=== PATIENT | female | born 1965 | race American Indian/Alaskan Native ===

== ENCOUNTER 2018-10-13 06:09 | Inpatient (IN) | payer OTHER ==
[2018-10-13] MEDS ORDERED: PROVENTIL IH ONE (06:15)
[2018-10-13] MEDS ORDERED: ATROVENT IH ONE (06:16)
[2018-10-13] MEDS ORDERED: ATIVAN IV ONE (06:19)
[2018-10-13] MEDS ORDERED: CATAPRES PO ONE (06:19)
--- NOTE | 2018-10-13 06:21 | Emergency Department Report ---
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 Patient presented to the ER complaining of shortness of breath and wheezing I started this morning. Patient stated that she was seen by her primary care physician on Sunday and she was given a steroid but symptoms improved a little bit and irritated this morning. Patient denied any fever or chills. No chest pain. Patient stated that her cough is productive with greenish sputum. EMS stated that patient initial oxygen saturation was 88% on room air patient received 125 mg of Solu-Medrol, 2 g magnesium sulfate and nonrebreather patient oxygen saturation went up to 98%. Patient refused BiPAP. Patient stated that she was intubated before for asthma exacerbation. MD Complaint: shortness of breath, cough -: This morning Severity: severe Known History Of: asthma Context: recent URI - Related Data Previous Rx's Medication Instructions Recorded Last Taken Type Cyclobenzaprine HCl [Flexeril 5 MG 5 mg PO TID PRN #21 tab 04/12/16 Unknown Rx TAB] Ibuprofen [Motrin 800 MG tab] 800 mg PO Q8HR PRN #30 tablet 04/12/16 Unknown Rx Allergies Allergy/AdvReac Type Severity Reaction Status Date / Time seafood, shellfish Allergy Rash Uncoded 04/12/16 21:12 ED Review of Systems ROS: Stated complaint: ASTHMA ATTACK Other details as noted in HPI Comment: All other systems reviewed and negative Constitutional: denies: chills, fever Respiratory: cough, shortness of breath, SOB with exertion, SOB at rest, wheezing Cardiovascular: denies: chest pain, palpitations, dyspnea on exertion Gastrointestinal: denies: abdominal pain, nausea, vomiting Musculoskeletal: denies: back pain Neurological: denies: headache, weakness, numbness, paresthesias, confusion ED Past Medical Hx - Past Medical History Hx Hypertension: Yes Hx Diabetes: Yes Hx Asthma: Yes - Surgical History Additional Surgical History: right kidney removed as child - Social History Smoking Status: Never Smoker Substance Use Type: None - Medications Home Medications: Home Medications Medication Instructions Recorded Confirmed Last Taken Type Cyclobenzaprine HCl [Flexeril 5 MG 5 mg PO TID PRN #21 tab 04/12/16 Unknown Rx TAB] Ibuprofen [Motrin 800 MG tab] 800 mg PO Q8HR PRN #30 tablet 04/12/16 Unknown Rx ED Physical Exam - General Limitations: No Limitations General appearance: alert, in distress - Head Head exam: Present: atraumatic, normocephalic, normal inspection - Eye Eye exam: Present: normal appearance, PERRL - ENT ENT exam: Present: normal exam, normal orophraynx, mucous membranes moist - Neck Neck exam: Present: normal inspection, full ROM. Absent: tenderness, meningismus, lymphadenopathy, thyromegaly - Respiratory Respiratory exam: Present: respiratory distress, wheezes, rhonchi, accessory muscle use, decreased breath sounds, prolonged expiratory. Absent: rales, stridor - Cardiovascular Cardiovascular Exam: Present: tachycardia - GI/Abdominal GI/Abdominal exam: Present: soft, normal bowel sounds. Absent: distended, tenderness, guarding, rebound, rigid, organomegaly, mass, bruit, pulsatile mass, hernia - Extremities Exam Extremities exam: Present: normal inspection, full ROM, normal capillary refill. Absent: pedal edema, calf tenderness - Back Exam Back exam: Present: normal inspection, full ROM - Neurological Exam Neurological exam: Present: alert, oriented X3, CN II-XII intact - Skin Skin exam: Present: warm, intact, normal color ED Course Vital Signs 10/13/18 10/13/18 10/13/18 06:17 06:18 06:31 Temperature 98.6 F Pulse Rate 119 H 126 H Pulse Rate [ Anterior Bilateral Throughout] Respiratory 23 24 Rate Respiratory Rate [Anterior Bilateral Throughout] Blood Pressure 227/138 Blood Pressure 227/138 [Left] O2 Sat by Pulse 100 100 Oximetry 10/13/18 10/13/18 10/13/18 06:36 07:02 07:04 Temperature Pulse Rate 129 H Pulse Rate [ 122 H Anterior Bilateral Throughout] Respiratory 23 Rate Respiratory 32 H 25 H Rate [Anterior Bilateral Throughout] Blood Pressure 193/101 Blood Pressure [Left] O2 Sat by Pulse 100 Oximetry 10/13/18 10/13/18 10/13/18 07:36 08:02 08:40 Temperature Pulse Rate 116 H 114 H 110 H Pulse Rate [ Anterior Bilateral Throughout] Respiratory 19 20 20 Rate Respiratory Rate [Anterior Bilateral Throughout] Blood Pressure Blood Pressure 174/109 144/96 [Left] O2 Sat by Pulse 100 100 100 Oximetry 10/13/18 10/13/18 10:09 10:57 Temperature Pulse Rate 77 90 Pulse Rate [ Anterior Bilateral Throughout] Respiratory 20 20 Rate Respiratory Rate [Anterior Bilateral Throughout] Blood Pressure Blood Pressure 151/74 144/80 [Left] O2 Sat by Pulse 100 100 Oximetry - Reevaluation(s) Reevaluation #1: 10/13/18 08:52 Patient evaluated by me multiple times. Patient stated that she is feeling much better. Patient initially refused BiPAP but we able to try to convince that it would help, and she agreed. - Consultations Consultation #1: 10/13/18 08:[address] Faust and, hospitalist she advised to admit the patient to Dr. Winslow. ED Medical Decision Making - Lab Data Result diagrams: 10/13/18 06:38 10/13/18 06:38 - Radiology Data Radiology results: report reviewed Referring Physician: KEO HOPKINS Patient Name: LOR WEBSTER Date of : 1965 Sex: Female Report Date: 2018-10-13 Report Status: Finalized Findings [facility] [address] [place] [address] XRay Report Signed Patient: LOR WEBSTER MR#: [id number] : 1965 Acct:[id number] Age/Sex: 52 / F ADM Date: 10/13/18 Loc: 4A A483-[address]: MARYLU WINSLOW MD Ordering Physician: KEO HOPKINS Date of Service: 10/13/18 Procedure(s): XR chest 1V ap Accession Number(s): [id number] cc: KEO HOPKINS Fluoro Time In Minutes: FINAL REPORT EXAM: XR CHEST 1V AP HISTORY: SOB. TECHNIQUE: Frontal chest x-ray. PRIORS: None currently available. FINDINGS: Cardiac silhouette is within normal limits. There is no effusion. There is no pneumothorax. There is no consolidation. Mildly prominent bilateral pulmonary markings. There are no suspicious osseous lesions. Scoliosis. IMPRESSION: Suspect mild pulmonary vascular congestion. Differential diagnosis includes bronchitis and interstitial pneumonitis. Transcribed By: TYM Dictated By: NOE WALLER MD Electronically Authenticated By: NOE WALLER MD Signed Date/Time: 10/13/18 1021 DD/ 1020 TD/TT: 10/13/18 1020 Critical Care Time: Yes Critical care time in (mins) excluding proc time.: 30 Critical care attestation.: If time is entered above; I have spent that time in minutes in the direct care of this critically ill patient, excluding procedure time. ED Disposition Clinical Impression: Acute respiratory failure, Asthma exacerbation Disposition: OP ADMIT IP TO THIS HOSP Is pt being admited?: Yes Condition: Stable
[2018-10-13] MEDS ORDERED: LEVAQUIN 500MG/100ML 500 MG/100 ML BAG IV ONE (06:22)
[2018-10-13] MEDS ORDERED: ATIVAN ONE (06:23)
[2018-10-13 07:07] LABS: Basophils # (Auto) 0.1 K/mm3 (0.0-0.1); Basophils % (Auto) 0.5 % (0.0-1.8); Eosinophils % (Auto) 0.2 % (0.0-4.3); Hematocrit 38.7 % (30.3-42.9); Hemoglobin 12.8 gm/dl (10.1-14.3); Lymphocytes # (Auto) 2.8 K/mm3 (1.2-5.4); Lymphocytes % (Auto) 19.6 % (13.4-35.0); Mean Corpuscular HGB Conc 33 % (30-34); Mean Corpuscular Volume 80 fl (79-97); Monocytes # (Auto) 0.8 K/mm3 (0.0-0.8); Monocytes % (Auto) 5.3 % (0.0-7.3); Platelet Count 251 K/mm3 (140-440); Red Blood Count 4.83 M/mm3 (3.65-5.03); Red Cell Distribution Width 14.9 % (13.2-15.2)
[2018-10-13 07:14] LABS: BUN/Creatinine Ratio 26; Blood Urea Nitrogen 23 mg/dL (7-17); Calcium 9.1 mg/dL (8.4-10.2); Hemolysis Index 5
--- NOTE | 2018-10-13 10:21 | XRay Report ---
FINAL REPORT EXAM: XR CHEST 1V AP HISTORY: SOB. TECHNIQUE: Frontal chest x-ray. PRIORS: None currently available. FINDINGS: Cardiac silhouette is within normal limits. There is no effusion. There is no pneumothorax. There is no consolidation. Mildly prominent bilateral pulmonary markings. There are no suspicious osseous lesions. Scoliosis. IMPRESSION: Suspect mild pulmonary vascular congestion. Differential diagnosis includes bronchitis and interstiti al pneumonitis.
[2018-10-13] MEDS ORDERED: ZOFRAN IV PRN (12:49)
[2018-10-13] MEDS ORDERED: TYLENOL PO PRN (12:49)
[2018-10-13] MEDS ORDERED: SODIUM CHLORIDE FLUSH SYRINGE 10 ML IV PRN (12:49)
[2018-10-13] MEDS ORDERED: MORPHINE IV PRN (12:49)
[2018-10-13] MEDS ORDERED: SOLU-Medrol IV SCH (14:00)
[2018-10-13] MEDS ORDERED: ZITHROMAX 500 MG in NACL 0.9% 250ML 250 ML IV SCH (14:00)
[2018-10-13] MEDS ORDERED: SOLU-Medrol ONE (14:27)
--- NOTE | 2018-10-13 15:07 | Consultation ---
History of Present Illness Consult date: 10/13/18 Requesting physician: KEO HOPKINS Reason for consult: dyspnea, asthma History of present illness: PULMONARY/CCM CONSULT NOTE (Full dictation # [id number]) Please see dictated notes for full details Medications and Allergies Allergies Allergy/AdvReac Type Severity Reaction Status Date / Time seafood, shellfish Allergy Rash Uncoded 04/12/16 21:12 Home Medications Medication Instructions Recorded Confirmed Last Taken Type ALBUTEROL Inhaler(NF) [VENTOLIN 2 puff IH Q6HR PRN #1 inha 10/14/18 Unknown Rx Inhaler(NF)] Budesonide/Formoterol Fumarate 10.2 gm IH BID #1 hfa.aer.ad 10/14/18 Unknown Rx [Symbicort 160-4.5 Mcg Inhaler] Famotidine [Pepcid] 20 mg PO BID #60 tablet 10/14/18 Unknown Rx Glimepiride [Amaryl] 2 mg PO QAM #30 tablet 10/14/18 Unknown Rx Ipratropium/Albuterol Sulfate 1 ampul IH Q6HRT #100 ampul.neb 10/14/18 Unknown Rx [DUONEB *Not for PRN Use*] Losartan [Cozaar] 50 mg PO QDAY #30 tablet 10/14/18 Unknown Rx Metformin HCl 1,000 mg PO BID #60 tablet 10/14/18 Unknown Rx Montelukast [Singulair] 10 mg PO QPM #30 tablet 10/14/18 Unknown Rx Prednisone [predniSONE (Christiane) ER 20 mg PO QDAY #5 tablet.dr 10/14/18 Unknown Rx TAB] amLODIPine [Norvasc] 10 mg PO QDAY #30 tablet 10/14/18 Unknown Rx Active Meds: Active Medications Acetaminophen (Tylenol) 650 mg PO Q4H PRN PRN Reason: Pain MILD(1-3)/Fever >100.5/JAMES Albuterol/Ipratropium (Duoneb *Not For Prn Use*) 1 ampul IH Q4HRT GYPSY Famotidine (Pepcid) 20 mg PO BID GYPSY Azithromycin 500 mg/ Sodium (Chloride) 250 mls @ 250 mls/hr IV Q24H GYPSY Methylprednisolone Sodium Succinate (Solu-Medrol) 60 mg IV Q6H GYPSY Last Admin: 10/13/18 14:49 Dose: 60 mg Documented by: Morphine Sulfate (Morphine) 2 mg IV Q4H PRN PRN Reason: Pain, Moderate (4-6) Ondansetron HCl (Zofran) 4 mg IV Q8H PRN PRN Reason: Nausea And Vomiting Sodium Chloride (Sodium Chloride Flush Syringe 10 Ml) 10 ml IV BID GYPSY Sodium Chloride (Sodium Chloride Flush Syringe 10 Ml) 10 ml IV PRN PRN PRN Reason: LINE FLUSH Physical Examination Vital signs: Vital Signs Temp Pulse Resp BP Pulse Ox 98.6 F 119 H 23 227/138 100 10/13/18 06:17 10/13/18 06:17 10/13/18 06:17 10/13/18 06:17 10/13/18 06:17 Results - Laboratory Findings CBC and BMP: 10/14/18 04:41 10/14/18 04:41 ABG POC ABG pH 7.354 (7.35-7.45) 10/13/18 12:36 POC ABG pCO2 47.2 (35-45) H 10/13/18 12:36 POC ABG pO2 89 (80-105) 10/13/18 12:36 POC ABG HCO3 26.3 10/13/18 12:36 POC ABG Total CO2 28 10/13/18 12:36 POC ABG O2 Sat 96 10/13/18 12:36 Abnormal lab findings: Abnormal Labs 10/13/18 10/13/18 10/13/18 06:38 06:38 06:40 WBC 14.3 H MCH 27 L Seg Neutrophils % 74.4 H Seg Neutrophils # 10.7 H POC ABG pH 7.273 L POC ABG pCO2 59.0 H POC ABG pO2 128 H BUN 23 H Glucose 192 H 10/13/18 12:36 WBC MCH Seg Neutrophils % Seg Neutrophils # POC ABG pH POC ABG pCO2 47.2 H POC ABG pO2 BUN Glucose
[2018-10-13] MEDS ORDERED: D50W (25GM) Syringe IV PRN (15:19)
--- NOTE | 2018-10-13 15:19 | History and Physical Report ---
History of Present Illness Date of examination: 10/13/18 Date of admission: 10/13/18 08:53 Chief complaint: Cough and shortness of breath` History of present illness: Patient is a 52-year-old -[place] female with history of severe asthma who presented to the ED on acct of cough with sob. Patient stated that for the past few weeks she's been having difficulty breathing with cough. Today, after she woke up, she suddenly started coughing with associated shortness of breath which was not relieved by her breathing treatments at home. She has positive palpitation and runny nose. She denies chest pain, diaphoresis, fever, chills, sore throat, leg swelling, orthopnea or PND. No headaches, nausea, vomiting, lightheadedness, syncope or loss of consciousness. No reported bleeding from any orifice Past History Past Medical History: diabetes, hypertension, hyperlipidemia, other (asthma) Past Surgical History: Other (left nephrectomy) Social history: no significant social history (she denies tobacco, alcohol or illicit drug use) Family history: other (patient is adopted) Medications and Allergies Allergies Allergy/AdvReac Type Severity Reaction Status Date / Time seafood, shellfish Allergy Rash Uncoded 04/12/16 21:12 Home Medications Medication Instructions Recorded Confirmed Last Taken Type Cyclobenzaprine HCl [Flexeril 5 MG 5 mg PO TID PRN #21 tab 04/12/16 Unknown Rx TAB] Ibuprofen [Motrin 800 MG tab] 800 mg PO Q8HR PRN #30 tablet 04/12/16 Unknown Rx Active Meds: Active Medications Acetaminophen (Tylenol) 650 mg PO Q4H PRN PRN Reason: Pain MILD(1-3)/Fever >100.5/JAMES Albuterol/Ipratropium (Duoneb *Not For Prn Use*) 1 ampul IH Q4HRT GYPSY Amlodipine Besylate (Norvasc) 10 mg PO QDAY GYPSY Famotidine (Pepcid) 20 mg PO BID GYPSY Azithromycin 500 mg/ Sodium (Chloride) 250 mls @ 250 mls/hr IV Q24H GYPSY Methylprednisolone Sodium Succinate (Solu-Medrol) 60 mg IV Q8HR GYPSY Morphine Sulfate (Morphine) 2 mg IV Q4H PRN PRN Reason: Pain, Moderate (4-6) Ondansetron HCl (Zofran) 4 mg IV Q8H PRN PRN Reason: Nausea And Vomiting Sodium Chloride (Sodium Chloride Flush Syringe 10 Ml) 10 ml IV BID GYPSY Sodium Chloride (Sodium Chloride Flush Syringe 10 Ml) 10 ml IV PRN PRN PRN Reason: LINE FLUSH Review of Systems All systems: negative (except as reviewed in the HPI, all other systems were reviewed and negative) Exam - Constitutional Vitals: Temp Pulse Resp BP Pulse Ox 98.6 F 90 20 144/80 98 10/13/18 06:17 10/13/18 10:57 10/13/18 10:57 10/13/18 10:57 10/13/18 12:35 General appearance: Present: no acute distress, obese - EENT Eyes: Present: PERRL, EOM intact ENT: hearing intact, clear oral mucosa - Neck Neck: Present: supple, normal ROM - Respiratory Respiratory effort: normal Respiratory: bilateral: diminished - Cardiovascular Rhythm: regular Heart Sounds: Present: S1 & S2. Absent: rub, click - Extremities Extremities: pulses symmetrical, No edema Peripheral Pulses: within normal limits - Abdominal General gastrointestinal: Present: soft, non-tender, non-distended, normal bowel sounds Female genitourinary: Present: deferred - Integumentary Integumentary: Present: clear, warm, dry - Musculoskeletal Musculoskeletal: gait normal, strength equal bilaterally - Psychiatric Psychiatric: appropriate mood/affect, intact judgment & insight - Neurologic Neurologic: CNII-XII intact, moves all extremities Results - Labs CBC & Chem 7: 10/13/18 06:38 10/13/18 06:38 Labs: Laboratory Last Values WBC 14.3 K/mm3 (4.5-11.0) H 10/13/18 06:38 RBC 4.83 M/mm3 (3.65-5.03) 10/13/18 06:38 Hgb 12.8 gm/dl (10.1-14.3) 10/13/18 06:38 Hct 38.7 % (30.3-42.9) 10/13/18 06:38 MCV 80 fl (79-97) 10/13/18 06:38 MCH 27 pg (28-32) L 10/13/18 06:38 MCHC 33 % (30-34) 10/13/18 06:38 RDW 14.9 % (13.2-15.2) 10/13/18 06:38 Plt Count 251 K/mm3 (140-440) 10/13/18 06:38 Lymph % (Auto) 19.6 % (13.4-35.0) 10/13/18 06:38 Hendry % (Auto) 5.3 % (0.0-7.3) 10/13/18 06:38 Eos % (Auto) 0.2 % (0.0-4.3) 10/13/18 06:38 Baso % (Auto) 0.5 % (0.0-1.8) 10/13/18 06:38 Lymph # 2.8 K/mm3 (1.2-5.4) 10/13/18 06:38 Hendry # 0.8 K/mm3 (0.0-0.8) 10/13/18 06:38 Eos # 0.0 K/mm3 (0.0-0.4) 10/13/18 06:38 Baso # 0.1 K/mm3 (0.0-0.1) 10/13/18 06:38 Seg Neutrophils % 74.4 % (40.0-70.0) H 10/13/18 06:38 Seg Neutrophils # 10.7 K/mm3 (1.8-7.7) H 10/13/18 06:38 POC ABG pH 7.354 (7.35-7.45) 10/13/18 12:36 POC ABG pCO2 47.2 (35-45) H 10/13/18 12:36 POC ABG pO2 89 (80-105) 10/13/18 12:36 POC ABG HCO3 26.3 10/13/18 12:36 POC ABG Total CO2 28 10/13/18 12:36 POC ABG O2 Sat 96 10/13/18 12:36 POC ABG Base Excess 1 10/13/18 12:36 FiO2 31 % 10/13/18 12:36 Sodium 140 mmol/L (137-145) 10/13/18 06:38 Potassium 3.6 mmol/L (3.6-5.0) 10/13/18 06:38 Chloride 100.8 mmol/L (98-107) 10/13/18 06:38 Carbon Dioxide 26 mmol/L (22-30) 10/13/18 06:38 Anion Gap 17 mmol/L 10/13/18 06:38 BUN 23 mg/dL (7-17) H 10/13/18 06:38 Creatinine 0.9 mg/dL (0.7-1.2) 10/13/18 06:38 Estimated GFR > 60 ml/min 10/13/18 06:38 BUN/Creatinine Ratio 26 % 10/13/18 06:38 Glucose 192 mg/dL (65-100) H 10/13/18 06:38 Calcium 9.1 mg/dL (8.4-10.2) 10/13/18 06:38 Troponin T < 0.010 ng/mL (0.00-0.029) 10/13/18 06:38 NT-Pro-B Natriuret Pep 107.9 pg/mL (0-900) 10/13/18 06:38 Assessment and Plan Assessment and plan: ACute severe asthma exacerbation -On IV steroids, duonebs and antibiotic Acute respiratory failure with hypoxia and hypercapnia -Improved, off BIPAP -Continue oxygen supplementation via nc as needed and duonebs SIRS, probably 2/2 acute bronchitis versus interstitial pneumonitis -On IV antibiotic -Blood cultures pending Hypertensive emergency with blood pressure of 227/138 on presentation -Blood pressure improved -Amlodipine started, monitor DM2 with hyperglycemia -on Lantus and SSI HLD -Resume statin when reconciled Obesity with BMI of 34.6 -Lifestyle modification recommended Prophylaxis -DVT prophylaxis with Lovenox -GI prophylaxis with famotidine Disp: Patient admitted on inpatient status with plan for discharge in 2-3 days if clinically stable TIME SPENT: 38 MINUTES
[2018-10-13] MEDS: DUONEB *Not for PRN Use IH SCH ×2 (16:13→19:42)
[2018-10-13] MEDS ORDERED: NORVASC ONE (16:25)
[2018-10-13] MEDS ORDERED: PEPCID ONE (16:25)
[2018-10-13] MEDS: PEPCID PO SCH ×2 (16:26→22:29)
[2018-10-13] MEDS: NORVASC PO SCH (16:26)
[2018-10-13] MEDS: HumaLOG SUB-Q SCH ×2 (18:00→22:28)
[2018-10-13] MEDS ORDERED: LANTUS SUB-Q SCH (22:00)
[2018-10-13] MEDS: SOLU-Medrol IV SCH (22:28)
[2018-10-13] MEDS: SODIUM CHLORIDE FLUSH SYRINGE 10 ML IV SCH (22:29)
[2018-10-14] MEDS: DUONEB *Not for PRN Use IH SCH ×2 (01:33→07:55)
[2018-10-14 05:40] LABS: Hematocrit 35.8 % (30.3-42.9); Hemoglobin 12.2 gm/dl (10.1-14.3); Mean Corpuscular HGB Conc 34 % (30-34); Mean Corpuscular Volume 80 fl (79-97); Platelet Count 206 K/mm3 (140-440); Red Blood Count 4.47 M/mm3 (3.65-5.03); Red Cell Distribution Width 14.8 % (13.2-15.2)
[2018-10-14 05:50] LABS: Alanine Aminotransferase 11 units/L (7-56); Albumin 3.7 g/dL (3.9-5); BUN/Creatinine Ratio 25; Blood Urea Nitrogen 28 mg/dL (7-17); Calcium 9.2 mg/dL (8.4-10.2); Hemolysis Index 5
[2018-10-14] MEDS: SOLU-Medrol IV SCH (06:02)
[2018-10-14 06:06] LABS: Bilirubin,Direct < 0.2 mg/dL (0-0.2)
[2018-10-14] MEDS ORDERED: NORVASC PO ONE (06:15)
[2018-10-14 06:23] LABS: Anisocytosis 1+; Band Neutrophils # (Manual) 0.1 K/mm3; Basophils % (Manual) 0 % (0.0-1.8); Eosinophils % (Manual) 0 % (0.0-4.3); Platelet Estimate Consistent w Auto; Total Cells Counted 100
[2018-10-14] MEDS ORDERED: APRESOLINE IV PRN (07:39)
[2018-10-14] MEDS: HumaLOG SUB-Q SCH ×2 (08:15→13:02)
[2018-10-14] MEDS ORDERED: LOVENOX SUB-Q SCH (10:00)
[2018-10-14] MEDS ORDERED: COZAAR PO SCH (10:00)
[2018-10-14] MEDS: PEPCID PO SCH (10:53)
--- NOTE | 2018-10-14 11:36 | Discharge Summary ---
Providers - Providers Date of Admission: 10/13/18 08:53 Date of discharge: 10/14/18 Attending physician: VANITA CORDOBA 10/13/18 12:23 Consult to Physician [CONS] Stat Comment: Consulting Provider: SUELLEN BALBUENA Physician Instructions: Reason For Exam: acute respiratory failure, asthma exacerbation Primary care physician: [employer] Hospitalization Reason for admission: asthma exacerbation Condition: Stable Hospital course: 52-year-old female with history of hypertension, diabetes, asthma was admitted for acute asthma exacerbation This morning patient is resting in the bed not in any distress. She denies any cough shortness of breath or wheezing or chest pain She is medically stable for discharge Chest x-ray showed no acute infiltrate Patient apparently is noncompliant with medications for her diabetes hypertension or asthma I had a good discussion with the patient regarding the importance of compliance with medications Final diagnosis Acute asthma exacerbation Improved Had a long discussion with the patient regarding medication compliance Patient apparently has a nebulizer machine at home Discharge the patient on albuterol inhaler and solution and Symbicort and montelukast Type 2 diabetes poorly controlled Again discussed the plan with the patient that regarding the long-term side effects of poorly controlled diabetes Restart the patient on metformin and glimepiride Hypertension Start on losartan and follow-up with PCP Disposition: DC-01 TO HOME OR SELFCARE Time spent for discharge: 38 min Core Measure Documentation - Palliative Care Palliative Care/ Comfort Measures: Not Applicable - Core Measures Any of the following diagnoses?: none Exam - Constitutional Vitals: Temp Pulse Resp BP Pulse Ox 97.7 F 101 H 18 144/76 98 10/14/18 05:17 10/14/18 10:53 10/14/18 08:17 10/14/18 10:53 10/14/18 08:17 General appearance: Present: no acute distress, well-nourished - EENT Eyes: Present: PERRL, EOM intact ENT: hearing intact, clear oral mucosa - Neck Neck: Present: supple, normal ROM. Absent: masses or JVD - Respiratory Respiratory effort: normal Respiratory: bilateral: CTA - Cardiovascular Rhythm: regular Heart Sounds: Present: S1 & S2 - Extremities Extremities: No edema - Abdominal General gastrointestinal: Present: soft, non-tender. Absent: hepatomegaly, splenomegaly Female genitourinary: Present: deferred - Rectal Rectal Exam: deferred - Integumentary Integumentary: Present: clear - Musculoskeletal Musculoskeletal: strength equal bilaterally - Psychiatric Psychiatric: appropriate mood/affect - Neurologic Neurologic: no focal deficits Plan Activity: advance as tolerated Weight Bearing Status: Full Weight Bearing Diet: regular, low fat, low cholesterol, low salt, diabetic Follow up with: PRIMARY CARE,MD [Primary Care Provider] - 3-5 Days Prescriptions: ALBUTEROL Inhaler(NF) [VENTOLIN Inhaler(NF)] 2 puff IH Q6HR PRN #1 inha PRN Reason: Dyspepsia amLODIPine [Norvasc] 10 mg PO QDAY #30 tablet Budesonide/Formoterol Fumarate [Symbicort 160-4.5 Mcg Inhaler] 10.2 gm IH BID #1 hfa.aer.ad Famotidine [Pepcid] 20 mg PO BID #60 tablet Glimepiride [Amaryl] 2 mg PO QAM #30 tablet Ipratropium/Albuterol Sulfate [DUONEB *Not for PRN Use*] 1 ampul IH Q6HRT #100 ampul.neb Losartan [Cozaar] 50 mg PO QDAY #30 tablet Metformin HCl 1,000 mg PO BID #60 tablet Montelukast [Singulair] 10 mg PO QPM #30 tablet Prednisone [predniSONE (Christiane) ER TAB] 20 mg PO QDAY #5 tablet.
[2018-10-14] MEDS: SODIUM CHLORIDE FLUSH SYRINGE 10 ML IV SCH (11:43)
[2018-10-14] MEDS: NORVASC PO SCH (11:45)
[2018-10-14 12:41] VITALS: BP 145/76
--- NOTE | 2018-10-28 02:57 | Consultation ---
PULMONARY CRITICAL CARE CONSULT NOTE CONSULTING PHYSICIAN: . REASON FOR CONSULTATION: Acute respiratory failure, acute asthma exacerbation. 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 She had been seen by her primary care physician a few days earlier, was started on some steroids, but her symptoms did not improve. She denied fevers or chills. She denied any significant sick contacts. She had been compliant with her medication. She had a cough productive of greenish phlegm. She denied any gross or streaky hemoptysis. On initial evaluation in the Emergency Room, she was hypoxemic, O2 sat was 88% on room air. She does have a prior intubation on acute asthma exacerbation. The patient was placed on amongst other things bilevel positive airway pressure ventilation therapy. We are asked to assist with management. When I stopped by to see her, she was feeling a little bit better. She denied any chest pain. She denied fevers or chills. She still complained of dyspnea on exertion. She denied any chest pain or palpitations. Denied any pleuritic type symptoms. She denied any new onset leg pain or swelling either unilaterally or bilaterally or other suggestion of venous thromboembolic phenomenon. The patient does state that her asthma symptoms seem to wake her up most days of the week and she does not seem to have a director of compensation in the community. This really is as much of the history of presentation as I have. I should mention she also does not seem to be on any controller type medications. PAST MEDICAL HISTORY: Again, hypertension, diabetes, history of asthma. She is obese. She has had a prior nephrectomy. PAST SURGICAL HISTORY: Right nephrectomy as a kid. MEDICATIONS: She was on at the time I stopped by to see her were reviewed, pertinent medications included the following: Tylenol 650 mg p.o. q. 4 hours p.r.n. mild pain or fevers, DuoNeb nebulizer treatments to be nebulized q.4 hours, Pepcid 20 mg p.o. b.i.d., Zithromax 500 mg p.o. daily, Solu-Medrol 60 mg IV q. 6 hours, morphine sulfate 2 mg IV q. 4 hours p.r.n. moderate pain, Zofran 4 mg IV q. 8 hours p.r.n. nausea and vomiting. ALLERGIES: SEAFOOD AND SHELLFISH. Nature of this allergy is unknown. DIET: Obese lady, denies acute weight loss or gain in the preceding few weeks to months. FAMILY AND SOCIAL HISTORY: Lives in the community. She denies any history of tobacco, alcohol, or illicit drug use or abuse. Denies a family history of asthma. FAMILY HISTORY: Otherwise noncontributory. REVIEW OF SYSTEMS: No loss of consciousness. No new onset seizures. No new onset focal weakness. No gross hematochezia or melena. No gross hematuria or dysuria. No hematemesis. No hemoptysis. She had cough productive of greenish phlegm. She denies polydipsia, polyuria. Denies heat or cold intolerance. Complete 13-system review of systems obtained. Pertinent positives and/or negatives as in body of history above, otherwise are noncontributory. PHYSICAL EXAMINATION: At presentation in the Emergency Room revealed: VITAL SIGNS: Shows that she was afebrile, temperature 98.6 degrees Fahrenheit, pulse of 119, respiratory rate 23, blood pressure as high as 227/138, and O2 sats were 100%, inspired oxygen concentration at that time was not recorded. When I stopped by to see her, O2 sats were about 97% on 1 liter nasal cannula. GENERAL: Again, obese -[place] female, middle aged, normocephalic, atraumatic, talking to me in mostly full sentences, but definitely in mild respiratory distress. HEAD, EYES, EARS, NOSE, AND THROAT: She is anicteric. No conjunctival erythema. Oropharynx is moist, it is a Mallampati #3 oropharynx. No gross jugular venous distention, no thyromegaly. Grossly, no palpable lymph nodes in the supraclavicular or submandibular lymph node chains. No meningismus. No thyromegaly. LUNGS: Auscultation of both lung acosta significant for prolonged expiratory phase, faint expiratory wheezing, occasional inspiratory rhonchi in the bases. HEART: Heart sounds 1 and 2 are heard. They were regular in rate and rhythm at time of my evaluation without rubs or murmurs. ABDOMEN: Soft, full, bowel sounds are positive. Protuberant, but nondistended, nontender. EXTREMITIES: Without overt digital clubbing or cyanosis. No pedal edema. No calf swelling or pain or tenderness. Dorsalis pedis pulses are palpable bilaterally. NEUROLOGIC: Pupils are equal, round, about 3-4 mm, reactive to light. Extraocular muscle movements appeared intact. She moves all 4 extremities spontaneously. No fasciculations. No spasticity. SKIN: The skin was of normal turgor without cellulitis or rash. LABORATORY DATA: From my review are as follows: Admission white cell count 14,300 with a hemoglobin of 12.8, hematocrit of 38.7, and a platelet count of 251. No band forms reported. Arterial blood gas at presentation showed a pH of 7.27, pCO2 of 59, pO2 of 128 that was on a 100% nonrebreather. Serum sodium was 140, potassium 3.6, chloride 101, bicarbonate 26, BUN 23, creatinine 0.9, glucose 192. Troponin within normal limits. BNP within normal limits. Blood cultures have been sent, no growth to date. She did have a chest x-ray. I have reviewed the chest x-ray. I have also reviewed the radiologist's interpretation. I do agree with it mostly. She does have evidence of hyperinflation; taking the hyperinflation into consideration, there is borderline cardiomegaly. There appears to be some mild scoliosis. Increased interstitial markings without focal consolidation. I cannot rule out mild interstitial edema, no gross pneumothorax, no gross bony fracture. ASSESSMENT: 1. Acute hypoxemic respiratory failure. 2. Acute asthma exacerbation. 3. Poorly controlled asthma. 4. Obesity. 5. Possible bronchitis. 6. History of diabetes. 7. Hypertension, poorly controlled. 8. History of right nephrectomy. PLAN: I do believe that there may have been an element of mild interstitial edema. This could well have been related to hypertensive urgency. Her systolic blood pressures were almost 230 mmHg at presentation. Right now, she is doing much better. From her asthma standpoint, I think we should continue systemic steroids with a slow taper. We should continue current bronchodilators as ordered. Oxygen will be weaned to keep sats greater than or equal to about 90%. Aspiration precautions will be maintained. I have explained to her that she will need to be on controller medications and to have a director of compensation in the community and she is in agreement with that. She has received also some magnesium supplementation and other interventions in the Emergency Room appeared to have been successful. I did encourage her that she should give wearing BiPAP a thought if she decompensates. She apparently refused that in the Emergency Room on finding out. Otherwise, she will be placed on GI and DVT prophylaxis. Culture should be followed. Antibiotics should be deescalated based on results of clinical and microbiologic data. Flu and pneumonia vaccination will be addressed per protocol. Thank you very much for the consult . We will follow along and make further recommendations as picture progresses/becomes clearer. JOB# [id number] LEONEL/COLLINS
== END 2018-10-14 13:55 | disposition home or self-care (01) | DRG 189 ==
LOC: ED 06:09 → 4A 08:53 → IMCU 12:18 → 3A 14:31
PROVIDERS: ADMIT Internal Medicine; ATTEND Internal Medicine
PROC: 5A09357 Assistance with Respiratory Ventilation, Less than 24 Consecutive Hours, Continuous Positive Airway Pressure (ICD-10-PCS; principal; 2018-10-13)
PROC: 4A033R1 Measurement of Arterial Saturation, Peripheral, Percutaneous Approach (ICD-10-PCS; 2018-10-13)
DX: J96.01 Acute respiratory failure with hypoxia (principal); I16.1 Hypertensive emergency; R65.10 Systemic inflammatory response syndrome (SIRS) of non-infectious origin without acute organ dysfunction; J96.02 Acute respiratory failure with hypercapnia; J45.909 Unspecified asthma, uncomplicated; E66.9 Obesity, unspecified; E78.5 Hyperlipidemia, unspecified; I10 Essential (primary) hypertension; E11.65 Type 2 diabetes mellitus with hyperglycemia; Z90.5 Acquired absence of kidney; Z91.013 Allergy to seafood; Z68.34 Body mass index [BMI] 34.0-34.9, adult; Z71.3 Dietary counseling and surveillance; Z79.84 Long term (current) use of oral hypoglycemic drugs
CPT/HCPCS: 36415; 36600; 71045; 80048; 80076; 82803; 82962; 83735; 83880; 84484; 85007; 85025; 87040; 93005; 93010; 94640; 94760; G0378; J0456; J1650; J1815; J1956; J2060; J2930; J7050

== ENCOUNTER 2019-01-01 11:50 | Emergency (ER) | payer OTHER ==
[2019-01-01] MEDS ORDERED: PROVENTIL IH ONE (12:12)
[2019-01-01] MEDS ORDERED: ATROVENT IH ONE (12:13)
[2019-01-01] MEDS ORDERED: SOLU-Medrol IV ONE (12:17)
[2019-01-01] MEDS ORDERED: MAGNESIUM SULFATE 2GM/50ML 2 GM/50 ML BAG IV ONE (12:17)
[2019-01-01 12:22] VITALS: BP 225/131
--- NOTE | 2019-01-01 12:29 | Emergency Department Report ---
ED General Adult HPI - General Chief complaint: Adult Asthma Stated complaint: ASTHMA Time Seen by Provider: 01/01/19 12:17 Source: patient, RN notes reviewed, old records reviewed Mode of arrival: Ambulatory Limitations: No Limitations - History of Present Illness Initial comments: Primary care DrSis: Morganza chinmay This is a 53-year-old female, not known to this provider previously, with a history of asthma, diabetes, hypertension, obesity. She presents to the emergency room with complaint of painless asthma exacerbation. She reports cough, wheezing, shortness of breath, malaise and fatigue. She denies DVT, pulmonary embolus risk factors. She reports 3 lifetime hospitalizations for asthma, and one lifetime intubation. In the emergency room, patient given magnesium, fluids, steroids, multiple rounds of albuterol, which dramatically improved her symptoms. Currently, blood pressure in the 180s, patient saturating well, on room air, walks without difficulty, and not experiencing desaturation. Tachycardia reviewed and appreciated, likely secondary to albuterol. Contacted the [facility] physician coordinator, Dr. Forman, who has arranged for close outpatient follow-up for repeat blood pressure checkup, and repeat respiratory examination. The patient endorses that she is reliable to follow-up as an outpatient. -: Gradual, days(s) (1) Severity scale (0 -10): 2 Consistency: constant Improves with: medication, rest Worsens with: movement - Related Data Previous Rx's Medication Instructions Recorded Last Taken Type ALBUTEROL Inhaler(NF) [VENTOLIN 2 puff IH Q6HR PRN #1 inha 10/14/18 Unknown Rx Inhaler(NF)] Famotidine [Pepcid] 20 mg PO BID #60 tablet 10/14/18 Unknown Rx Glimepiride [Amaryl] 2 mg PO QAM #30 tablet 10/14/18 Unknown Rx Ipratropium/Albuterol Sulfate 1 ampul IH Q6HRT #100 ampul.neb 10/14/18 Unknown Rx [DUONEB *Not for PRN Use*] Metformin HCl 1,000 mg PO BID #60 tablet 10/14/18 Unknown Rx Montelukast [Singulair] 10 mg PO QPM #30 tablet 10/14/18 Unknown Rx Prednisone [predniSONE (Christiane) ER 20 mg PO QDAY #5 tablet. 10/14/18 Unknown Rx TAB] ALBUTEROL NEB's [Proventil 0.083% 2.5 mg IH QID PRN #10 neb 01/01/19 Unknown Rx NEBS] Albuterol Sulfate [Albuterol 0.63% 0.63 mg IH Q4HR PRN #2 ml 01/01/19 Unknown Rx NEBS] Albuterol Sulfate [Proair 90 mcg IH Q4HR PRN #2 aer.pow.ba 01/01/19 Unknown Rx Respiclick] Budesonide/Formoterol Fumarate 10.2 gm IH BID #1 hfa.aer.ad 01/01/19 Unknown Rx [Symbicort 160-4.5 Mcg Inhaler] Ipratropium [Atrovent NEB] 0.5 mg IH Q4HR #2 ml 01/01/19 Unknown Rx Losartan [Cozaar] 50 mg PO QDAY #30 tablet 01/01/19 Unknown Rx amLODIPine [Norvasc] 10 mg PO QDAY #30 tablet 01/01/19 Unknown Rx predniSONE [Deltasone] 40 mg PO QDAY #8 tab 01/01/19 Unknown Rx Allergies Allergy/AdvReac Type Severity Reaction Status Date / Time seafood, shellfish Allergy Rash Uncoded 04/12/16 21:12 ED Review of Systems ROS: Stated complaint: ASTHMA Other details as noted in HPI Constitutional: weakness. denies: fever, malaise ENT: congestion Respiratory: shortness of breath, SOB with exertion, SOB at rest, wheezing Cardiovascular: denies: chest pain Gastrointestinal: denies: abdominal pain, nausea, vomiting Genitourinary: denies: dysuria Musculoskeletal: denies: back pain Neurological: denies: weakness Psychiatric: anxiety ED Past Medical Hx - Past Medical History Previous Medical History?: Yes Hx Hypertension: Yes Hx Diabetes: Yes Hx Asthma: Yes - Surgical History Past Surgical History?: Yes Additional Surgical History: right kidney removed as child - Social History Smoking Status: Never Smoker - Medications Home Medications: Home Medications Medication Instructions Recorded Confirmed Last Taken Type ALBUTEROL Inhaler(NF) [VENTOLIN 2 puff IH Q6HR PRN #1 inha 10/14/18 Unknown Rx Inhaler(NF)] Famotidine [Pepcid] 20 mg PO BID #60 tablet 10/14/18 Unknown Rx Glimepiride [Amaryl] 2 mg PO QAM #30 tablet 10/14/18 Unknown Rx Ipratropium/Albuterol Sulfate 1 ampul IH Q6HRT #100 ampul.neb 10/14/18 Unknown Rx [DUONEB *Not for PRN Use*] Metformin HCl 1,000 mg PO BID #60 tablet 10/14/18 Unknown Rx Montelukast [Singulair] 10 mg PO QPM #30 tablet 10/14/18 Unknown Rx Prednisone [predniSONE (Christiane) ER 20 mg PO QDAY #5 tablet. 10/14/18 Unknown Rx TAB] ALBUTEROL NEB's [Proventil 0.083% 2.5 mg IH QID PRN #10 neb 01/01/19 Unknown Rx NEBS] Albuterol Sulfate [Albuterol 0.63% 0.63 mg IH Q4HR PRN #2 ml 01/01/19 Unknown Rx NEBS] Albuterol Sulfate [Proair 90 mcg IH Q4HR PRN #2 aer.pow.ba 01/01/19 Unknown Rx Respiclick] Budesonide/Formoterol Fumarate 10.2 gm IH BID #1 hfa.aer.ad 01/01/19 Unknown Rx [Symbicort 160-4.5 Mcg Inhaler] Ipratropium [Atrovent NEB] 0.5 mg IH Q4HR #2 ml 01/01/19 Unknown Rx Losartan [Cozaar] 50 mg PO QDAY #30 tablet 01/01/19 Unknown Rx amLODIPine [Norvasc] 10 mg PO QDAY #30 tablet 01/01/19 Unknown Rx predniSONE [Deltasone] 40 mg PO QDAY #8 tab 01/01/19 Unknown Rx ED Physical Exam - General Limitations: No Limitations General appearance: alert, anxious - Head Head exam: Present: atraumatic, normocephalic - Eye Eye exam: Present: normal appearance, EOMI. Absent: nystagmus - ENT ENT exam: Present: normal exam, normal orophraynx, mucous membranes moist, normal external ear exam - Neck Neck exam: Present: normal inspection, full ROM. Absent: tenderness, meningismus - Respiratory Respiratory exam: Present: normal lung sounds bilaterally, respiratory distress, wheezes, rhonchi - Cardiovascular Cardiovascular Exam: Present: normal rhythm, tachycardia, normal heart sounds. Absent: systolic murmur, diastolic murmur, rubs, gallop - GI/Abdominal GI/Abdominal exam: Present: soft. Absent: distended, tenderness, guarding, rebound, rigid, pulsatile mass - Extremities Exam Extremities exam: Present: normal inspection, full ROM, other (2+ pulses noted in the bilateral upper, lower extremities. Compartments soft. No long bony tenderness. The pelvis is stable.). Absent: pedal edema, calf tenderness - Back Exam Back exam: Present: normal inspection, full ROM. Absent: tenderness, CVA tenderness (R), CVA tenderness (L), paraspinal tenderness, vertebral tenderness - Neurological Exam Neurological exam: Present: alert, oriented X3, normal gait, other (Extraocular movements intact. Tongue midline. No facial droop. Facial sensation intact to light touch in the V1, V2, V3 distribution bilaterally. 5 and 5 strength in 4 extremities.. Sensation is intact to light touch in 4 extremities.). Absent: motor sensory deficit - Psychiatric Psychiatric exam: Present: normal affect, normal mood - Skin Skin exam: Present: warm, dry, intact, normal color. Absent: rash ED Course Vital Signs 01/01/19 01/01/19 01/01/19 12:10 12:15 12:18 Temperature 98.2 F Pulse Rate 123 H 117 H 122 H Pulse Rate [ Anterior Bilateral Throughout] Respiratory 25 H 20 20 Rate Respiratory Rate [Anterior Bilateral Throughout] Blood Pressure 225/131 225/131 Blood Pressure 225/131 [Right] O2 Sat by Pulse 95 95 98 Oximetry 01/01/19 01/01/19 01/01/19 12:21 12:31 12:45 Temperature Pulse Rate 116 H 112 H Pulse Rate [ 119 H Anterior Bilateral Throughout] Respiratory 21 22 Rate Respiratory 26 H Rate [Anterior Bilateral Throughout] Blood Pressure 225/131 225/131 Blood Pressure [Right] O2 Sat by Pulse 99 100 Oximetry 01/01/19 01/01/19 01/01/19 13:01 13:15 13:31 Temperature Pulse Rate 107 H 109 H 113 H Pulse Rate [ Anterior Bilateral Throughout] Respiratory 19 21 19 Rate Respiratory Rate [Anterior Bilateral Throughout] Blood Pressure 225/131 225/131 225/131 Blood Pressure [Right] O2 Sat by Pulse 96 96 96 Oximetry 01/01/19 01/01/19 01/01/19 13:50 14:01 14:02 Temperature Pulse Rate 120 H Pulse Rate [ 119 H Anterior Bilateral Throughout] Respiratory 17 Rate Respiratory 22 Rate [Anterior Bilateral Throughout] Blood Pressure 225/131 225/131 Blood Pressure [Right] O2 Sat by Pulse 99 96 Oximetry 01/01/19 01/01/19 14:15 14:31 Temperature Pulse Rate 108 H 111 H Pulse Rate [ Anterior Bilateral Throughout] Respiratory 21 18 Rate Respiratory Rate [Anterior Bilateral Throughout] Blood Pressure 225/131 225/131 Blood Pressure [Right] O2 Sat by Pulse 96 97 Oximetry ED Medical Decision Making - Lab Data Result diagrams: 01/01/19 12:38 01/01/19 12:38 Vital Signs 01/01/19 01/01/19 01/01/19 12:10 12:15 12:18 Temperature 98.2 F Pulse Rate 123 H 117 H 122 H Pulse Rate [ Anterior Bilateral Throughout] Respiratory 25 H 20 20 Rate Respiratory Rate [Anterior Bilateral Throughout] Blood Pressure 225/131 225/131 Blood Pressure 225/131 [Right] O2 Sat by Pulse 95 95 98 Oximetry 01/01/19 01/01/19 01/01/19 12:21 12:31 12:45 Temperature Pulse Rate 116 H 112 H Pulse Rate [ 119 H Anterior Bilateral Throughout] Respiratory 21 22 Rate Respiratory 26 H Rate [Anterior Bilateral Throughout] Blood Pressure 225/131 225/131 Blood Pressure [Right] O2 Sat by Pulse 99 100 Oximetry 01/01/19 01/01/19 01/01/19 13:01 13:15 13:31 Temperature Pulse Rate 107 H 109 H 113 H Pulse Rate [ Anterior Bilateral Throughout] Respiratory 19 21 19 Rate Respiratory Rate [Anterior Bilateral Throughout] Blood Pressure 225/131 225/131 225/131 Blood Pressure [Right] O2 Sat by Pulse 96 96 96 Oximetry 01/01/19 01/01/19 01/01/19 13:50 14:01 14:02 Temperature Pulse Rate 120 H Pulse Rate [ 119 H Anterior Bilateral Throughout] Respiratory 17 Rate Respiratory 22 Rate [Anterior Bilateral Throughout] Blood Pressure 225/131 225/131 Blood Pressure [Right] O2 Sat by Pulse 99 96 Oximetry 01/01/19 01/01/19 14:15 14:31 Temperature Pulse Rate 108 H 111 H Pulse Rate [ Anterior Bilateral Throughout] Respiratory 21 18 Rate Respiratory Rate [Anterior Bilateral Throughout] Blood Pressure 225/131 225/131 Blood Pressure [Right] O2 Sat by Pulse 96 97 Oximetry Lab Results 01/01/19 01/01/19 01/01/19 Range/Units 12:38 12:38 12:38 WBC 9.9 (4.5-11.0) K/mm3 RBC 4.77 (3.65-5.03) M/mm3 Hgb 13.2 (10.1-14.3) gm/dl Hct 39.2 (30.3-42.9) % MCV 82 (79-97) fl MCH 28 (28-32) pg MCHC 34 (30-34) % RDW 14.4 (13.2-15.2) % Plt Count 194 (140-440) K/mm3 PT 13.0 (12.2-14.9) Sec. INR 0.93 (0.87-1.13) Sodium 138 (137-145) mmol/L Potassium 3.6 (3.6-5.0) mmol/L Chloride 100.7 (98-107) mmol/L Carbon Dioxide 24 (22-30) mmol/L Anion Gap 17 mmol/L BUN 11 (7-17) mg/dL Creatinine 0.9 (0.7-1.2) mg/dL Estimated GFR > 60 ml/min BUN/Creatinine Ratio 12 % Glucose 169 H (65-100) mg/dL Calcium 9.0 (8.4-10.2) mg/dL Magnesium 2.80 H (1.7-2.3) mg/dL Total Creatine Kinase 291 H (30-135) units/L - Radiology Data Radiology results: report reviewed, image reviewed X-ray of the chest is reviewed and appreciated. No acute disease. - Medical Decision Making Differential diagnosis, including but not limited to: Asthma exacerbation, chronic hypertension Assessment and plan: 53-year-old female with asthma exacerbation, improved after albuterol, steroids, and magnesium sulfate. Elevated blood pressure is reviewed and appreciated, this is chronic. Currently, blood pressure in the high 180s. Heart rate now 105-10 8 bpm. Please reference the [employer] clinical policy on hypertension which is not acutely symptomatic. The patient has been given outpatient follow-up with Morganza. She reports that she is reliable to follow-up. Critical care attestation.: If time is entered above; I have spent that time in minutes in the direct care of this critically ill patient, excluding procedure time. ED Disposition Clinical Impression: Asthma exacerbation, Hypertension Disposition: DC-01 TO HOME OR SELFCARE Is pt being admited?: No Does the pt Need Aspirin: No Condition: Stable Instructions: Hypertension (ED), Asthma (ED) Additional Instructions: Please follow-up with your primary care doctor at Dr. Hale at [facility] on January 07 15:20 . Take medications as directed. Please make certain her main compliant blood pressure medications. Patient was found to have high blood pressure in the emergency room. Long-term complications of hypertension and elevated blood pressure includes stroke, heart attack, disability, paralysis, loss of quality of life. Please return to the emergency room right away with new pain, worsening pain, migration of pain, productive vomiting, change in mental status, confusion, inability to tolerate liquid feeds.
[2019-01-01 12:51] LABS: Hematocrit 39.2 % (30.3-42.9); Hemoglobin 13.2 gm/dl (10.1-14.3); Mean Corpuscular HGB Conc 34 % (30-34); Mean Corpuscular Volume 82 fl (79-97); Platelet Count 194 K/mm3 (140-440); Red Blood Count 4.77 M/mm3 (3.65-5.03); Red Cell Distribution Width 14.4 % (13.2-15.2)
--- NOTE | 2019-01-01 12:52 | XRay Report ---
AP CHEST :01/01/19 12:30 CLINICAL: Shortness of breath. COMPARISON:10/13/18 FINDINGS: Normal heart and pulmonary vasculature. The lungs are normally expanded and clear. However, the costophrenic angles are not included on the image. Mild aortic tortuosity. Degenerative change in the spine. Normal soft tissues.No tubes or lines. IMPRESSION: No acute cardiopulmonary process.
[2019-01-01 13:10] LABS: INR 0.93 (0.87-1.13)
[2019-01-01 13:12] LABS: BUN/Creatinine Ratio 12; Blood Urea Nitrogen 11 mg/dL (7-17); Hemolysis Index 5
[2019-01-01] MEDS ORDERED: NACL 0.9% 500 ML 500 ML IV ONE (13:56)
== END 2019-01-01 15:43 | disposition home or self-care (01) ==
LOC: ED 11:50
DX: J45.901 Unspecified asthma with (acute) exacerbation (principal); I10 Essential (primary) hypertension; E11.9 Type 2 diabetes mellitus without complications; Z91.013 Allergy to seafood
CPT/HCPCS: 36415; 71045; 80048; 82550; 83735; 85027; 85610; 94644; 96365; 96375; 99285; J2930; J3475

== ENCOUNTER 2019-06-15 13:27 | Inpatient (IN) | payer MEDICAID, OTHER ==
[2019-06-15] MEDS ORDERED: LORazepam 2 MG/ML VIAL IV ONE (13:50)
[2019-06-15] MEDS ORDERED: LORazepam 2 MG/ML VIAL ONE (13:53)
[2019-06-15] MEDS ORDERED: ALBUTEROL 2.5 MG/3 ML NEBU IH ONE ×4 (13:56→18:14)
[2019-06-15] MEDS ORDERED: IPRATROPIUM 0.02% NEBU 2.5 ML IH ONE ×4 (13:56→18:14)
[2019-06-15] MEDS ORDERED: LIP THERAPY VASELINE TP PRN (14:12)
[2019-06-15] MEDS ORDERED: MINERAL OIL/PETROLATUM, WHITE OPHTH OINT 3.5 GM OU PRN (14:12)
--- NOTE | 2019-06-15 14:12 | Procedure Note ---
Date of procedure: 06/15/19 Pre-op diagnosis: respiratory failure Post-op diagnosis: same Procedure: intubation Estimated blood loss: none (assessment have ET tube was placed under direct visualization of the vocal cords. An initial attempt was not successful so a second attempt was done with condensation in the tube and change and colorimetric. Etomidate and succinylcholine was used for RSI. this was an emergent procedure. Chest x-ray done and will be followed by the on coming physician)
[2019-06-15] MEDS ORDERED: FUROSEMIDE 40 MG/4 ML INJ IV ONE (14:28)
--- NOTE | 2019-06-15 14:34 | Emergency Department Report ---
ED Shortness of Breath HPI - General Chief Complaint: Dyspnea/Respdistress Stated Complaint: RESPIRATORY DISTRESS Time Seen by Provider: 06/15/19 13:49 Source: EMS Mode of arrival: Stretcher Limitations: No Limitations - History of Present Illness Initial Comments: Pt was at [facility] this morning and began experiencing difficulty of breathing. Pt was hypertensive according to EMS at 217/114. Albuterol, solumedrol, and Mag given in route. MD Complaint: shortness of breath, "asthma attack" - Related Data Previous Rx's Medication Instructions Recorded Last Taken Type ALBUTEROL Inhaler(NF) [VENTOLIN 2 puff IH Q6HR PRN #1 inha 10/14/18 Unknown Rx Inhaler(NF)] Famotidine [Pepcid] 20 mg PO BID #60 tablet 10/14/18 Unknown Rx Glimepiride [Amaryl] 2 mg PO QAM #30 tablet 10/14/18 Unknown Rx Ipratropium/Albuterol Sulfate 1 ampul IH Q6HRT #100 ampul.neb 10/14/18 Unknown R x [DUONEB *Not for PRN Use*] Metformin HCl [metFORMIN] 1,000 mg PO BID #60 tablet 10/14/18 Unknown Rx Montelukast [Singulair] 10 mg PO QPM #30 tablet 10/14/18 Unknown Rx Prednisone [predniSONE (Christiane) ER 20 mg PO QDAY #5 tablet.dr 10/14/18 Unknown Rx TAB] ALBUTEROL NEB's [Proventil 0.083% 2.5 mg IH QID PRN #10 neb 01/01/19 Unknown Rx NEBS] Albuterol Sulfate [Albuterol 0.63% 0.63 mg IH Q4HR PRN #2 ml 01/01/19 Unknown Rx NEBS] Albuterol Sulfate [Proair 90 mcg IH Q4HR PRN #2 aer.pow.ba 01/01/19 Unknown Rx Respiclick] Budesonide/Formoterol Fumarate 10.2 gm IH BID #1 hfa.aer.ad 01/01/19 Unknown Rx [Symbicort 160-4.5 Mcg Inhaler] Ipratropium [Atrovent NEB] 0.5 mg IH Q4HR #2 ml 01/01/19 Unknown Rx Losartan [Cozaar] 50 mg PO QDAY #30 tablet 01/01/19 Unknown Rx amLODIPine 10 mg PO QDAY #30 tablet 01/01/19 Unknown Rx predniSONE [Deltasone] 40 mg PO QDAY #8 tab 01/01/19 Unknown Rx Allergies Allergy/AdvReac Type Severity Reaction Status Date / Time seafood, shellfish Allergy Rash Uncoded 04/12/16 21:12 ED Review of Systems ROS: Stated complaint: RESPIRATORY DISTRESS Other details as noted in HPI Comment: All other systems reviewed and negative Respiratory: cough, orthopnea, shortness of breath, wheezing Cardiovascular: dyspnea on exertion ED Past Medical Hx - Past Medical History Hx Hypertension: Yes Hx Diabetes: Yes Hx Asthma: Yes - Surgical History Additional Surgical History: right kidney removed as child - Social History Smoking Status: Never Smoker - Medications Home Medications: Home Medications Medication Instructions Recorded Confirmed Last Taken Type ALBUTEROL Inhaler(NF) [VENTOLIN 2 puff IH Q6HR PRN #1 inha 10/14/18 Unknown Rx Inhaler(NF)] Famotidine [Pepcid] 20 mg PO BID #60 tablet 10/14/18 Unknown Rx Glimepiride [Amaryl] 2 mg PO QAM #30 tablet 10/14/18 Unknown Rx Ipratropium/Albuterol Sulfate 1 ampul IH Q6HRT #100 ampul.neb 10/14/18 Unknown Rx [DUONEB *Not for PRN Use*] Metformin HCl [metFORMIN] 1,000 mg PO BID #60 tablet 10/14/18 Unknown Rx Montelukast [Singulair] 10 mg PO QPM #30 tablet 10/14/18 Unknown Rx Prednisone [predniSONE (Christiane) ER 20 mg PO QDAY #5 tablet. 10/14/18 Unknown Rx TAB] ALBUTEROL NEB's [Proventil 0.083% 2.5 mg IH QID PRN #10 neb 01/01/19 Unknown Rx NEBS] Albuterol Sulfate [Albuterol 0.63% 0.63 mg IH Q4HR PRN #2 ml 01/01/19 Unknown Rx NEBS] Albuterol Sulfate [Proair 90 mcg IH Q4HR PRN #2 aer.pow.ba 01/01/19 Unknown Rx Respiclick] Budesonide/Formoterol Fumarate 10.2 gm IH BID #1 hfa.aer.ad 01/01/19 Unknown Rx [Symbicort 160-4.5 Mcg Inhaler] Ipratropium [Atrovent NEB] 0.5 mg IH Q4HR #2 ml 01/01/19 Unknown Rx Losartan [Cozaar] 50 mg PO QDAY #30 tablet 01/01/19 Unknown Rx amLODIPine 10 mg PO QDAY #30 tablet 01/01/19 Unknown Rx predniSONE [Deltasone] 40 mg PO QDAY #8 tab 01/01/19 Unknown Rx ED Physical Exam - General Limitations: No Limitations General appearance: in distress, obese - Head Head exam: Present: atraumatic - Eye Eye exam: Present: normal appearance - ENT ENT exam: Present: normal exam - Neck Neck exam: Present: normal inspection - Respiratory Respiratory exam: Present: wheezes, accessory muscle use, decreased breath sounds - Cardiovascular Cardiovascular Exam: Present: tachycardia - GI/Abdominal GI/Abdominal exam: Present: soft - Back Exam Back exam: Present: normal inspection - Neurological Exam Neurological exam: Present: alert, altered, CN II-XII intact ED Course Vital Signs 06/15/19 06/15/19 14:30 15:02 Pulse Rate 126 H Respiratory 40 H Rate [Anterior Bilateral Throughout] Blood Pressure 170/113 O2 Sat by Pulse 100 Oximetry ED Medical Decision Making - Lab Data Result diagrams: 06/15/19 14:24 06/15/19 14:24 - EKG Data -: EKG Interpreted by Me EKG shows normal: sinus rhythm Rate: tachycardia - EKG Data Interpretation: nonspecific ST-T wave mala - Radiology Data Radiology results: report reviewed interpreted by me: E.T tube in position E.T tube in position - Medical Decision Making 52-year-old -[place] female with the past medical history of asthma, became dyspneic at [facility], not speaking in full sentences, very labored breathing, therefore was brought to ER via EMS. She was given albuterol in route by EMS, she was given short course of BiPAP in ER, remained very dyspneic, became very confused, urinated on self, anxious, taking bipap off, sats decreased to the 50s, the patient was then intubated. after intubation, patient sats improved to mid 90s, family was advised of patient's condition. - Differential Diagnosis p.e, m.i, asthma exacerbation Critical Care Time: Yes (45mins) Critical care time in (mins) excluding proc time.: 45 Critical care attestation.: If time is entered above; I have spent that time in minutes in the direct care of this critically ill patient, excluding procedure time. ED Disposition Clinical Impression: Acute respiratory failure Qualifiers: Respiratory failure complication: hypoxia Qualified Code(s): J96.01 - Acute respiratory failure with hypoxia Asthma exacerbation Qualifiers: Asthma severity: severe Asthma persistence: persistent Qualified Code(s): J45.51 - Severe persistent asthma with (acute) exacerbation Disposition: 09 OP ADMIT IP TO THIS HOSP Is pt being admited?: Yes Does the pt Need Aspirin: No Condition: Critical
[2019-06-15 14:41] LABS: Hemoglobin 12.8 gm/dl (10.1-14.3); Mean Corpuscular HGB Conc 33 % (30-34); Mean Corpuscular Volume 82 fl (79-97); Platelet Count 247 K/mm3 (140-440); Red Blood Count 4.74 M/mm3 (3.65-5.03); Red Cell Distribution Width 14.7 % (13.2-15.2)
[2019-06-15] MEDS: PROPOFOL 1,000 MG/100 ML BOTTLE IV SCH ×3 (14:42→21:20)
--- NOTE | 2019-06-15 14:44 | XRay Report ---
CHEST 1 VIEW INDICATION: ett tube placement. COMPARISON: Chest x-ray from 01/01/2019 FINDINGS: Support devices: Endotracheal tube with tip along the lower clavicle margin. Heart: Within normal limits. Lungs/Pleura: No acute air space or interstitial disease. Additional findings: None. IMPRESSION: 1. Satisfactory ET tube placement as above. Clear lungs. Signer Name: Paul Drew MD Signed: 06/15/2019 2:40 PM Workstation Name: [id number]
[2019-06-15] MEDS ORDERED: MIDAZOLAM 2 MG/2 ML INJ IV PRN (14:48)
[2019-06-15] MEDS ORDERED: SODIUM CHLORIDE 0.9% 1000 ML 1,000 ML IV ONE (14:48)
[2019-06-15 14:55] LABS: BUN/Creatinine Ratio 19; Blood Urea Nitrogen 19 mg/dL (7-17); Calcium 8.8 mg/dL (8.4-10.2); Hemolysis Index 23
[2019-06-15] MEDS ORDERED: MIDAZOLAM 100 MG in SODIUM CHLORIDE 0.9% 80 ML IV SCH (15:00)
[2019-06-15 15:28] LABS: Band Neutrophils # (Manual) 0.3 K/mm3; Total Cells Counted 100
[2019-06-15 15:30] LABS: Platelet Estimate Consistent w Auto; RBC Morphology Normal
[2019-06-15 16:49] LABS: Chol/HDL Ratio 2.26 %
[2019-06-15] MEDS ORDERED: PROPOFOL 1,000 MG/100 ML BOTTLE IV ONE ×2 (17:38→21:09)
--- NOTE | 2019-06-15 17:52 | History and Physical Report ---
History of Present Illness Date of examination: 06/15/19 Date of admission: 06/15/19 14:14 Chief complaint: Severe shortness of breath and wheezing since a.m. History of present illness: 53-year-old -[place] female with history of asthma, type 2 diabetes and hypertension intubated in the past once comes in for severe shortness of breath and wheezing since morning. Sudden onset. Patient was intubated in the past. No fever or chills. Patient uses nebulizer machine twice a day at home. No exacerbating or relieving factors. No recent travel. Patient was desaturating and was in low 80s because of which patient was intubated in the emergency room. Past Medical History Hypertension Diabetes Asthma Surgical History Additional Surgical History: right kidney removed as child Social History Smoking Status: Never Smoker Family History Htn - Medications Home Medications: Home Medications Medication Instructions Recorded Confirmed Last Taken Type ALBUTEROL Inhaler(NF) [VENTOLIN 2 puff IH Q6HR PRN #1 inha 10/14/18 Unknown Rx Inhaler(NF)] Famotidine [Pepcid] 20 mg PO BID #60 tablet 10/14/18 Unknown Rx Glimepiride [Amaryl] 2 mg PO QAM #30 tablet 10/14/18 Unknown Rx Ipratropium/Albuterol Sulfate 1 ampul IH Q6HRT #100 ampul.neb 10/14/18 Unknown Rx [DUONEB *Not for PRN Use*] Metformin HCl [metFORMIN] 1,000 mg PO BID #60 tablet 10/14/18 Unknown Rx Montelukast [Singulair] 10 mg PO QPM #30 tablet 10/14/18 Unknown Rx Prednisone [predniSONE (Christiane) ER 20 mg PO QDAY #5 tablet.dr 10/14/18 Unknown Rx TAB] ALBUTEROL NEB's [Proventil 0.083% 2.5 mg IH QID PRN #10 neb 01/01/19 Unknown Rx NEBS] Albuterol Sulfate [Albuterol 0.63% 0.63 mg IH Q4HR PRN #2 ml 01/01/19 Unknown Rx NEBS] Albuterol Sulfate [Proair 90 mcg IH Q4HR PRN #2 aer.pow.ba 01/01/19 Unknown Rx Respiclick] Budesonide/Formoterol Fumarate 10.2 gm IH BID #1 hfa.aer.ad 01/01/19 Unknown Rx [Symbicort 160-4.5 Mcg Inhaler] Ipratropium [Atrovent NEB] 0.5 mg IH Q4HR #2 ml 01/01/19 Unknown Rx Losartan [Cozaar] 50 mg PO QDAY #30 tablet 01/01/19 Unknown Rx amLODIPine 10 mg PO QDAY #30 tablet 01/01/19 Unknown Rx predniSONE [Deltasone] 40 mg PO QDAY #8 tab 01/01/19 Unknown Rx Review of Systems ROS: Stated complaint: RESPIRATORY DISTRESS Patient intubated and sedated. No fever or chills. Limited review of systems could be done Severe cough and wheezing and low oxygen saturations 14 point review of systems attempted and could not be done Medications and Allergies Allergies Allergy/AdvReac Type Severity Reaction Status Date / Time seafood, shellfish Allergy Rash Uncoded 04/12/16 21:12 Home Medications Medication Instructions Recorded Confirmed Last Taken Type ALBUTEROL Inhaler(NF) [VENTOLIN 2 puff IH Q6HR PRN #1 inha 10/14/18 Unknown Rx Inhaler(NF)] Famotidine [Pepcid] 20 mg PO BID #60 tablet 10/14/18 Unknown Rx Glimepiride [Amaryl] 2 mg PO QAM #30 tablet 10/14/18 Unknown Rx Ipratropium/Albuterol Sulfate 1 ampul IH Q6HRT #100 ampul.neb 10/14/18 Unknown Rx [DUONEB *Not for PRN Use*] Metformin HCl [metFORMIN] 1,000 mg PO BID #60 tablet 10/14/18 Unknown Rx Montelukast [Singulair] 10 mg PO QPM #30 tablet 10/14/18 Unknown Rx Prednisone [predniSONE (Christiane) ER 20 mg PO QDAY #5 tablet.dr 10/14/18 Unknown Rx TAB] ALBUTEROL NEB's [Proventil 0.083% 2.5 mg IH QID PRN #10 neb 01/01/19 Unknown Rx NEBS] Albuterol Sulfate [Albuterol 0.63% 0.63 mg IH Q4HR PRN #2 ml 01/01/19 Unknown Rx NEBS] Albuterol Sulfate [Proair 90 mcg IH Q4HR PRN #2 aer.pow.ba 01/01/19 Unknown Rx Respiclick] Budesonide/Formoterol Fumarate 10.2 gm IH BID #1 hfa.aer.ad 01/01/19 Unknown Rx [Symbicort 160-4.5 Mcg Inhaler] Ipratropium [Atrovent NEB] 0.5 mg IH Q4HR #2 ml 01/01/19 Unknown Rx Losartan [Cozaar] 50 mg PO QDAY #30 tablet 01/01/19 Unknown Rx amLODIPine 10 mg PO QDAY #30 tablet 01/01/19 Unknown Rx predniSONE [Deltasone] 40 mg PO QDAY #8 tab 01/01/19 Unknown Rx Active Meds: Active Medications Hydrophilic Ointment (Vaseline Lip Therapy) 1 applic TP Q2HR PRN PRN Reason: Dry Lips Propofol (Diprivan 10 Mg/Ml) 1,000 mg in 100 mls @ 3.543 mls/hr IV TITR GYPSY; Protocol Last Titration: 06/15/19 15:30 Dose: 40 mcg/kg/min, 28.344 mls/hr Documented by: Midazolam HCl (Versed) 2 mg IV Q10MIN PRN PRN Reason: Sedation Multi-Ingred Cream/Lotion/Oil/Oint (Artificial Tears Ophth Oint) 1 applic OU Q4HR PRN PRN Reason: Dry Eye(s) Sodium Chloride (Sodium Chloride Flush Syringe 10 Ml) 10 ml IV BID GYPSY Sodium Chloride (Sodium Chloride Flush Syringe 10 Ml) 10 ml IV PRN PRN PRN Reason: LINE FLUSH Exam - Constitutional Vitals: Temp Pulse Resp BP Pulse Ox 101 H 14 155/100 98 06/15/19 17:18 06/15/19 17:18 06/15/19 17:18 06/15/19 17:18 General appearance: Present: severe distress, well-nourished - EENT Eyes: Present: PERRL ENT: hearing intact, clear oral mucosa - Neck Neck: Present: supple, normal ROM - Respiratory Respiratory effort: normal Respiratory: bilateral: CTA, diminished, rhonchi, wheezing - Cardiovascular Heart rate: 93 Rhythm: regular (is) Heart Sounds: Present: S1 & S2. Absent: rub, click - Extremities Extremities: no ischemia, pulses intact, pulses symmetrical, No edema Peripheral Pulses: within normal limits - Abdominal General gastrointestinal: Present: soft, non-tender, non-distended, normal bowel sounds Female genitourinary: Present: normal - Rectal Rectal Exam: deferred - Integumentary Integumentary: Present: clear, warm, dry - Musculoskeletal Musculoskeletal: gait normal, strength equal bilaterally - Psychiatric Psychiatric: appropriate mood/affect, intact judgment & insight - Neurologic Neurologic: CNII-XII intact, moves all extremities - Allied Health Allied health notes reviewed: nursing, case management (resume) Results - Labs CBC & Chem 7: 06/15/19 14:24 06/15/19 14:24 Labs: Laboratory Last Values WBC 25.0 K/mm3 (4.5-11.0) H 06/15/19 14:24 RBC 4.74 M/mm3 (3.65-5.03) 06/15/19 14:24 Hgb 12.8 gm/dl (10.1-14.3) 06/15/19 14:24 Hct 39.0 % (30.3-42.9) 06/15/19 14:24 MCV 82 fl (79-97) 06/15/19 14:24 MCH 27 pg (28-32) L 06/15/19 14:24 MCHC 33 % (30-34) 06/15/19 14:24 RDW 14.7 % (13.2-15.2) 06/15/19 14:24 Plt Count 247 K/mm3 (140-440) 06/15/19 14:24 Lymph # Gas Engine Performance Engineer 06/15/19 14:24 Add Manual Diff Complete 06/15/19 14:24 Total Counted 100 06/15/19 14:24 Seg Neuts % (Manual) 73.0 % (40.0-70.0) H 06/15/19 14:24 Band Neutrophils % 1.0 % 06/15/19 14:24 Lymphocytes % (Manual) 16.0 % (13.4-35.0) 06/15/19 14:24 Reactive Lymphs % (Man) 0 % 06/15/19 14:24 Monocytes % (Manual) 1.0 % (0.0-7.3) 06/15/19 14:24 Eosinophils % (Manual) 8.0 % (0.0-4.3) H 06/15/19 14:24 Basophils % (Manual) 1.0 % (0.0-1.8) 06/15/19 14:24 Metamyelocytes % 0 % 06/15/19 14:24 Myelocytes % 0 % 06/15/19 14:24 Promyelocytes % 0 % 06/15/19 14:24 Blast Cells % 0 % 06/15/19 14:24 Nucleated RBC % Not Reportable 06/15/19 14:24 Seg Neutrophils # Man 18.3 K/mm3 (1.8-7.7) H 06/15/19 14:24 Band Neutrophils # 0.3 K/mm3 06/15/19 14:24 Lymphocytes # (Manual) 4.0 K/mm3 (1.2-5.4) 06/15/19 14:24 Abs React Lymphs (Man) 0.0 K/mm3 06/15/19 14:24 Monocytes # (Manual) 0.3 K/mm3 (0.0-0.8) 06/15/19 14:24 Eosinophils # (Manual) 2.0 K/mm3 (0.0-0.4) H 06/15/19 14:24 Basophils # (Manual) 0.3 K/mm3 (0.0-0.1) H 06/15/19 14:24 Metamyelocytes # 0.0 K/mm3 06/15/19 14:24 Myelocytes # 0.0 K/mm3 06/15/19 14:24 Promyelocytes # 0.0 K/mm3 06/15/19 14:24 Blast Cells # 0.0 K/mm3 06/15/19 14:24 WBC Morphology Not Reportable 06/15/19 14:24 Hypersegmented Neuts Not Reportable 06/15/19 14:24 Hyposegmented Neuts Not Reportable 06/15/19 14:24 Hypogranular Neuts Not Reportable 06/15/19 14:24 Smudge Cells Not Reportable 06/15/19 14:24 Toxic Granulation Not Reportable 06/15/19 14:24 Toxic Vacuolation Not Reportable 06/15/19 14:24 Dohle Bodies Not Reportable 06/15/19 14:24 Pelger-Huet Anomaly Not Reportable 06/15/19 14:24 Alberto Rods Not Reportable 06/15/19 14:24 Platelet Estimate Consistent w auto 06/15/19 14:24 Clumped Platelets Not Reportable 06/15/19 14:24 Plt Clumps, EDTA Not Reportable 06/15/19 14:24 Large Platelets Not Reportable 06/15/19 14:24 Giant Platelets Not Reportable 06/15/19 14:24 Platelet Satelliting Not Reportable 06/15/19 14:24 Plt Morphology Comment Not Reportable 06/15/19 14:24 RBC Morphology Normal 06/15/19 14:24 Dimorphic RBCs Not Reportable 06/15/19 14:24 Polychromasia Not Reportable 06/15/19 14:24 Hypochromasia Not Reportable 06/15/19 14:24 Poikilocytosis Not Reportable 06/15/19 14:24 Anisocytosis Not Reportable 06/15/19 14:24 Microcytosis Not Reportable 06/15/19 14:24 Macrocytosis Not Reportable 06/15/19 14:24 Spherocytes Not Reportable 06/15/19 14:24 Pappenheimer Bodies Not Reportable 06/15/19 14:24 Sickle Cells Not Reportable 06/15/19 14:24 Target Cells Not Reportable 06/15/19 14:24 Tear Drop Cells Not Reportable 06/15/19 14:24 Ovalocytes Not Reportable 06/15/19 14:24 Helmet Cells Not Reportable 06/15/19 14:24 [place] Bodies Not Reportable 06/15/19 14:24 [place] Rings Not Reportable 06/15/19 14:24 Danae Cells Not Reportable 06/15/19 14:24 Bite Cells Not Reportable 06/15/19 14:24 Crenated Cell Not Reportable 06/15/19 14:24 Elliptocytes Not Reportable 06/15/19 14:24 Acanthocytes (Spur) Not Reportable 06/15/19 14:24 Rouleaux Not Reportable 06/15/19 14:24 Hemoglobin C Crystals Not Reportable 06/15/19 14:24 Schistocytes Not Reportable 06/15/19 14:24 Malaria parasites Not Reportable 06/15/19 14:24 Arash Bodies Not Reportable 06/15/19 14:24 Hem Pathologist Commnt No 06/15/19 14:24 D-Dimer 209.61 ng/mlDDU (0-234) 06/15/19 14:24 POC ABG pH 7.326 (7.35-7.45) L 06/15/19 16:34 POC ABG pCO2 48.5 (35-45) H 06/15/19 16:34 POC ABG pO2 153 (80-105) H 06/15/19 16:34 POC ABG HCO3 25.3 (22-26 mml/L) 06/15/19 16:34 POC ABG Total CO2 27 (23-27mmol/L) 06/15/19 16:34 POC ABG O2 Sat 99 06/15/19 16:34 POC ABG Base Excess -1 ((-2) - (+3)mmol/L) 06/15/19 16:34 FiO2 50 % 06/15/19 16:34 Sodium 140 mmol/L (137-145) 06/15/19 14:24 Potassium 4.2 mmol/L (3.6-5.0) 06/15/19 14:24 Chloride 103.6 mmol/L (98-107) 06/15/19 14:24 Carbon Dioxide 24 mmol/L (22-30) 06/15/19 14:24 Anion Gap 17 mmol/L 06/15/19 14:24 BUN 19 mg/dL (7-17) H 06/15/19 14:24 Creatinine 1.0 mg/dL (0.7-1.2) 06/15/19 14:24 Estimated GFR > 60 ml/min 06/15/19 14:24 BUN/Creatinine Ratio 19 % 06/15/19 14:24 Glucose 195 mg/dL (65-100) H 06/15/19 14:24 POC Glucose 261 (70-105) H 06/15/19 14:03 Calcium 8.8 mg/dL (8.4-10.2) 06/15/19 14:24 Troponin T 0.033 ng/mL (0.00-0.029) H D 06/15/19 16:01 NT-Pro-B Natriuret Pep 223.2 pg/mL (0-900) 06/15/19 16:01 Triglycerides 77 mg/dL (2-149) 06/15/19 16:01 Cholesterol 161 mg/dL (50-199) 06/15/19 16:01 LDL Cholesterol Direct 88 mg/dL (50-130) 06/15/19 16:01 HDL Cholesterol 71 mg/dL (40-59) H 06/15/19 16:01 Cholesterol/HDL Ratio 2.26 % 06/15/19 16:01 Lipase 30 units/L (13-60) 06/15/19 14:24 - Imaging and Cardiology EKG: report reviewed (sinus rhythm heart rate of 93/m left ventricular hypertrophy, left atrial enlargement.) Chest x-ray: report reviewed Imaging and Cardiology: CXR Heart: Within normal limits. Lungs/Pleura: No acute air space or interstitial disease. Additional findings: None. IMPRESSION: 1. Satisfactory ET tube placement as above. Clear lungs. Assessment and Plan Assessment and plan: Critical care time 40 minutes Advance Directives: Yes (full code) VTE prophylaxis?: Chemical Plan of care discussed with patient/family: Yes - Patient Problems (1) Acute respiratory failure Current Visit: Yes Status: Acute Qualifiers: Respiratory failure complication: hypoxia Qualified Code(s): J96.01 - Acute respiratory failure with hypoxia Plan to address problem: Patient was hypoxic and has to be intubated Patient on propofol for sedation IV Solu-Medrol, nebulizer treatments [id number] and when necessary and IV antibiotics (2) SIRS (systemic inflammatory response syndrome) Current Visit: Yes Status: Acute Plan to address problem: High white count of 25,000 Status asthmaticus Initiated on antibiotics (3) Elevated troponin Current Visit: Yes Status: Acute Plan to address problem: Possible NSTEMI Will initiate on IV heparin drip Cardiology consult (4) Status asthmaticus Current Visit: Yes Status: Acute Qualifiers: Asthma severity: severe Plan to address problem: Patient intubated IV Solu-Medrol IV antibiotics Nevertheless treatments [id number] and when necessary (5) Hypertension Current Visit: Yes Status: Chronic Qualifiers: Hypertension type: essential hypertension Qualified Code(s): I10 - Essential (primary) hypertension Plan to address problem: Catapres patch was initiated Will resume oral antihypertensives once she is extubated (6) Type 2 diabetes mellitus Current Visit: Yes Status: Chronic Qualifiers: Diabetes mellitus snf insulin use: without termite control representative use Plan to address problem: Check hemoglobin A1c Coverage for now (7) DVT prophylaxis Current Visit: Yes Status: Acute Plan to address problem: Initiated on Lovenox and GI prophylaxis
[2019-06-15] MEDS ORDERED: ALBUTEROL 2.5 MG/3 ML NEBU IH PRN (19:37)
[2019-06-15] MEDS ORDERED: cefTRIAXone/NS 2 GM/100 ML 2 GM/100 ML BAG IV ONE (19:53)
[2019-06-15] MEDS ORDERED: cloNIDine TTS 0.2 MG/24 HR PATCH TD SCH (20:00)
[2019-06-15] MEDS: cefTRIAXone/NS 2 GM/100 ML 2 GM/100 ML BAG IV SCH (20:00)
[2019-06-15] MEDS ORDERED: HEPARIN/ 0.45% NACL DRIP 25,000 UNIT/500 ML BAG IV SCH (20:00)
[2019-06-15] MEDS: INSULIN LISPRO 100 UNIT/ML SUB-Q SCH (20:53)
[2019-06-15 20:55] LABS: Hematocrit 39.3 % (30.3-42.9)
[2019-06-15 21:06] LABS: INR 1.02 (0.87-1.13); Partial Thromboplastin Time 26.4 Sec. (24.2-36.6)
[2019-06-15] MEDS: AZITHROMYCIN 500 MG in SODIUM CHLORIDE 0.9% 250ML 250 ML IV SCH (21:09)
[2019-06-15 21:13] LABS: Creatine Kinase MB 11.8 ng/mL (0.0-4.0)
[2019-06-15] MEDS: IPRATROPIUM/ALBUTEROL SULFATE 3 ML AMPUL.NEB IH SCH (22:00)
[2019-06-15] MEDS ORDERED: methylPREDNISolone Sod Succinate 125 MG/2 ML INJ ONE (22:02)
[2019-06-15] MEDS ORDERED: FAMOTIDINE 20 MG/2 ML INJ IV ONE (22:02)
[2019-06-15] MEDS: FAMOTIDINE 20 MG/2 ML INJ IV SCH (22:15)
[2019-06-15] MEDS: methylPREDNISolone Sod Succinate 125 MG/2 ML INJ IV SCH (22:17)
[2019-06-15] MEDS ORDERED: HEPARIN/ 0.45% NACL DRIP 25,000 UNIT/500 ML BAG ONE (22:37)
[2019-06-16] MEDS ORDERED: PROPOFOL 1,000 MG/100 ML BOTTLE IV ONE ×4 (00:23→10:07)
[2019-06-16] MEDS: PROPOFOL 1,000 MG/100 ML BOTTLE IV SCH ×4 (00:30→10:13)
[2019-06-16] MEDS: INSULIN LISPRO 100 UNIT/ML SUB-Q SCH ×4 (00:30→19:11)
[2019-06-16] MEDS ORDERED: INSULIN LISPRO 100 UNIT/ML SUB-Q ONE ×3 (00:32→12:16)
[2019-06-16] MEDS ORDERED: ETOMIDATE 20 MG/10 ML INJ IV ONE (03:00)
[2019-06-16] MEDS ORDERED: MIDAZOLAM 5 MG/5 ML INJ MDV IV ONE (03:00)
[2019-06-16] MEDS ORDERED: SUCCINYLCHOLINE CHLORIDE 200 MG/10 ML INJ MDV ONE (03:00)
[2019-06-16] MEDS ORDERED: hydrALAZINE 20 MG/1 ML INJ ONE ×2 (04:22→08:34)
[2019-06-16] MEDS: hydrALAZINE 20 MG/1 ML INJ IV PRN ×2 (04:22→08:40)
--- NOTE | 2019-06-16 05:53 | XRay Report ---
CHEST 1 VIEW 0522 INDICATION / CLINICAL INFORMATION: follow up respiratory failure. COMPARISON: 06/15/2019 FINDINGS: SUPPORT DEVICES: Endotracheal tube has been inserted and appears to be in satisfactory position with tip approximately 6.5 cm above the dora. A nasogastric tube has been inserted well below the diaphr agm. HEART / MEDIASTINUM: Stable LUNGS / PLEURA: No significant pulmonary or pleural abnormality. No pneumothorax. ADDITIONAL FINDINGS: No significant additional findings. IMPRESSION: Device positions appear radiographically satisfactory Signer Name: Chon Boone MD Signed: 06/16/2019 5:49 AM Workstation Name: [id number]
[2019-06-16] MEDS ORDERED: methylPREDNISolone Sod Succinate 125 MG/2 ML INJ ONE ×2 (06:02→14:24)
[2019-06-16] MEDS: methylPREDNISolone Sod Succinate 125 MG/2 ML INJ IV SCH ×3 (06:03→22:41)
[2019-06-16 07:30] LABS: Creatine Kinase MB 11.5 ng/mL (0.0-4.0)
[2019-06-16] MEDS ORDERED: IPRATROPIUM/ALBUTEROL SULFATE 3 ML AMPUL.NEB IH ONE ×2 (09:30→14:31)
[2019-06-16] MEDS: IPRATROPIUM/ALBUTEROL SULFATE 3 ML AMPUL.NEB IH SCH ×4 (09:33→19:59)
[2019-06-16] MEDS ORDERED: FAMOTIDINE 20 MG/2 ML INJ IV ONE (11:01)
[2019-06-16] MEDS: FAMOTIDINE 20 MG/2 ML INJ IV SCH ×2 (11:14→22:45)
--- NOTE | 2019-06-16 13:30 | Event Note ---
Date: 06/16/19 Reviewed Chart. Patient seen by Dr. Clement earlier in the year. Spoke with RT and they spoke with Dr. Oro. I placed consult to her and she will see this afternoon.
[2019-06-16] MEDS ORDERED: amLODIPine 10 MG TAB ONE (14:33)
[2019-06-16] MEDS ORDERED: LISINOPRIL 10 MG TAB ONE (14:34)
[2019-06-16] MEDS: amLODIPine 10 MG TAB PO SCH (14:34)
[2019-06-16] MEDS: LISINOPRIL 10 MG TAB PO SCH (14:35)
--- NOTE | 2019-06-16 15:08 | Consultation ---
History of Present Illness Consult date: 06/16/19 Requesting physician: ANGELA SCHILLING Consult reason: elevated troponin History of present illness: The pt is a 53-year-old -[place] female with history of asthma, type 2 diabetes and hypertension. She is previously unknown to our practice. She is intubated on evaluation and thus HPI is obtained per the chart. Pt presented with c/o severe shortness of breath and wheezing since this morning. Sudden onset. Patient was intubated in the past. No fever or chills. Patient uses nebulizer machine twice a day at home. No exacerbating or relieving factors. No recent travel. Patient was subsequently intubated in ED. Cardiology has been consulted for minimally elevated troponins. Past History Past Medical History: hypertension, other (asthma) Medications and Allergies Allergies Allergy/AdvReac Type Severity Reaction Status Date / Time seafood, shellfish Allergy Rash Uncoded 04/12/16 21:12 Home Medications Medication Instructions Recorded Confirmed Last Taken Type ALBUTEROL Inhaler (OR & NICU) 2 puff IH Q4H PRN 06/16/19 06/16/19 Unknown History [Proair] ALBUTEROL NEB's [Proventil] 2.5 mg IH Q4H PRN 06/16/19 06/16/19 Unknown History Amlodipine Besylate [Norvasc] 5 mg PO QDAY 06/16/19 06/16/19 Unknown History Lisinopril [Zestril TAB] 10 mg PO QDAY 06/16/19 06/16/19 Unknown History Rosuvastatin Calcium [Crestor] 10 mg PO DAILY 06/16/19 06/16/19 Unknown History glipiZIDE [Glucotrol] 10 mg PO BID 06/16/19 06/16/19 Unknown History Active Meds: Active Medications Albuterol (Proventil) 2.5 mg IH Q4H PRN PRN Reason: Shortness Of Breath Albuterol/Ipratropium (Duoneb *Not For Prn Use*) 1 ampul IH QIDRT [facility] Last Admin: 06/16/19 14:34 Dose: 1 ampul Documented by: Amlodipine Besylate (Amlodipine) 10 mg PO QDAY [facility] Last Admin: 06/16/19 14:34 Dose: 10 mg Documented by: Clonidine HCl (Catapres-Tts Patch) 0.2 mg TD Joseph [facility] Last Admin: 06/15/19 23:50 Dose: 0.2 mg Documented by: Famotidine (Pepcid) 20 mg IV BID [facility] Last Admin: 06/16/19 11:14 Dose: 20 mg Documented by: Hydralazine HCl (Apresoline) 10 mg IV Q3H PRN PRN Reason: Blood Pressure Last Admin: 06/16/19 08:40 Dose: 10 mg Documented by: Hydralazine HCl (Apresoline) 50 mg PO Q8HR [facility] Hydrophilic Ointment (Vaseline Lip Therapy) 1 applic TP Q2HR PRN PRN Reason: Dry Lips Propofol (Diprivan 10 Mg/Ml) 1,000 mg in 100 mls @ 3.543 mls/hr IV TITR [facility]; Protocol Last Titration: 06/16/19 13:47 Dose: 0 mcg/kg/min, 0 mls/hr Documented by: Ceftriaxone Sodium (Rocephin/Ns 2 Gm/100 Ml) 2 gm in 100 mls @ 200 mls/hr IV Q24H [facility]; Protocol Last Admin: 06/15/19 20:00 Dose: 200 mls/hr Documented by: Azithromycin 500 mg/ Sodium (Chloride) 250 mls @ 250 mls/hr IV Q24H [facility]; Protocol Last Admin: 06/15/19 21:09 Dose: 250 mls/hr Documented by: Insulin Glargine (Lantus) 10 units SUB-Q QHS [facility] Insulin Human Lispro (Humalog) 0 unit SUB-Q Q6HR [facility]; Protocol Last Admin: 06/16/19 12:20 Dose: 3 unit Documented by: Lisinopril (Zestril) 10 mg PO QDAY [facility] Last Admin: 06/16/19 14:35 Dose: 10 mg Documented by: Methylprednisolone Sodium Succinate (Solu-Medrol) 125 mg IV Q8HR [facility] Last Admin: 06/16/19 14:30 Dose: 125 mg Documented by: Midazolam HCl (Versed) 2 mg IV Q10MIN PRN PRN Reason: Sedation Multi-Ingred Cream/Lotion/Oil/Oint (Artificial Tears Ophth Oint) 1 applic OU Q4HR PRN PRN Reason: Dry Eye(s) Pneumococcal Polyvalent Vaccine (Pneumovax 23) 0.5 ml IM .ONCE ONE Stop: 06/17/19 12:01 Sodium Chloride (Sodium Chloride Flush Syringe 10 Ml) 10 ml IV BID [facility] Last Admin: 06/16/19 09:51 Dose: 10 ml Documented by: Sodium Chloride (Sodium Chloride Flush Syringe 10 Ml) 10 ml IV PRN PRN PRN Reason: LINE FLUSH Last Admin: 06/15/19 19:10 Dose: 10 ml Documented by: Review of Systems ROS unobtainable: due to endotracheal tube, due to mental status Physical Examination Vital Signs Pulse Resp BP Pulse Ox 130 H 19 170/113 100 06/15/19 14:24 06/15/19 14:24 06/15/19 14:24 06/15/19 14:24 General appearance: other (intubated) HEENT: Positive: PERRL Neck: Positive: neck supple, trachea midline Cardiac: Positive: Reg Rate and Rhythm, S1/S2 Lungs: Positive: Decreased Breath Sounds, Wheezes, Oxygen, Ventilated Respirations Neuro: Positive: Other (intubated, following commands) Abdomen: Negative: Tender Skin: Negative: Rash Musculoskeletal: No Pain Extremities: Absent: edema Results 06/15/19 20:39 06/16/19 06:46 Cardiac Enzymes 06/15/19 06/16/19 06/16/19 Range/Units 20:39 01:53 06:46 CK-MB (CK-2) 11.8 H 12.0 H 11.5 H (0.0-4.0) ng/mL Coagulation 06/15/19 Range/Units 20:39 PT 13.3 (12.2-14.9) Sec. INR 1.02 (0.87-1.13) APTT 26.4 (24.2-36.6) Sec. Lipids 06/15/19 Range/Units 16:01 Triglycerides 77 (2-149) mg/dL Cholesterol 161 (50-199) mg/dL HDL Cholesterol 71 H (40-59) mg/dL Cholesterol/HDL Ratio 2.26 % CBC 06/15/19 Range/Units 20:39 Hgb 13.0 (10.1-14.3) gm/dl Hct 39.3 (30.3-42.9) % Plt Count 191 (140-440) K/mm3 Comprehensive Metabolic Panel 06/16/19 Range/Units 06:46 Potassium 4.1 (3.6-5.0) mmol/L - Imaging and Cardiology Echo: pending EKG: report reviewed, image reviewed EKG interpretations - Telemetry EKG Rhythm: Sinus Rhythm - EKG Sinus rhythms and dysrhythmias: sinus rhythm Repolarization changes or abnormalities: repolarization abn secondary to ventricular hypertrophy Assessment and Plan Cont supportive management. Optimize BPs - resume home anti-hypertensive regimen. Obtain echo. Minimally elevated troponins appear nonspecific at this time, d/c heparin gtt. F/u ECG in AM. The patient has been seen in conjunction with Dr. Elise who agrees with the assessment and plan of care. - Patient Problems (1) Acute respiratory failure Current Visit: Yes Status: Acute Qualifiers: Respiratory failure complication: hypoxia Qualified Code(s): J96.01 - Acute respiratory failure with hypoxia (2) Asthma exacerbation Current Visit: Yes Status: Acute Qualifiers: Asthma severity: severe Asthma persistence: persistent Qualified Code(s): J45.51 - Severe persistent asthma with (acute) exacerbation (3) Elevated troponin Current Visit: Yes Status: Acute (4) Hypertension Current Visit: Yes Status: Chronic Qualifiers: Hypertension type: essential hypertension Qualified Code(s): I10 - E ssential (primary) hypertension (5) Type 2 diabetes mellitus Current Visit: Yes Status: Chronic Qualifiers: Diabetes mellitus long-term insulin use: without watermaster use (6) Leukocytosis Current Visit: Yes Status: Acute
--- NOTE | 2019-06-16 15:50 | Progress Note ---
Assessment and Plan Assessment and plan: Acute respt failure with hypoxia status post intubation -Now extubated and saturating well on nasal cannula -Continue oxygen supplementation as needed and neb tx Status asthmaticus -Improved -Continue IV steroid, antibiotic and neb tx SIRS -Probably secondary to acute bronchitis versus early PNA -UA pending -Continue IV antibiotics -Sputum and blood cultures pending DM2 with hyperglycemia -on SSI and Lantus Hypertensive urgency -Blood pressure uncontrolled -Antihypertensives adjusted, monitor BP Elevated troponin -Probably secondary to demand ischemia due to hypoxia -level trended down -echo pending -cardiology following Obesity with BMI of 36.3 -Lifestyle modification recommended DVT ppx: Lovenox GI ppx: Protonix Disp: pt to be transferred to the telemetry unit History Interval history: Pt seen after extubation. She denies chest pain or sob Hospitalist Physical - Constitutional Vitals: Temp Pulse Resp BP Pulse Ox 98.8 F 99 H 22 177/87 98 06/16/19 12:08 06/16/19 15:00 06/16/19 15:00 06/16/19 15:00 06/16/19 15:00 General appearance: Present: no acute distress, obese - EENT Eyes: Present: PERRL, EOM intact ENT: hearing intact, clear oral mucosa - Neck Neck: Present: supple - Respiratory Respiratory effort: normal Respiratory: bilateral: diminished, negative: rales, wheezing - Cardiovascular Rhythm: regular Heart Sounds: Present: S1 & S2 - Extremities Extremities: No edema - Abdominal General gastrointestinal: soft, non-tender, normal bowel sounds - Integumentary Integumentary: Present: warm, dry - Psychiatric Psychiatric: appropriate mood/affect - Neurologic Neurologic: CNII-XII intact Results - Labs CBC & Chem 7: 06/15/19 20:39 06/16/19 06:46 Labs: Laboratory Last Values WBC 25.0 K/mm3 (4.5-11.0) H 06/15/19 14:24 RBC 4.74 M/mm3 (3.65-5.03) 06/15/19 14:24 Hgb 13.0 gm/dl (10.1-14.3) 06/15/19 20:39 Hct 39.3 % (30.3-42.9) 06/15/19 20:39 MCV 82 fl (79-97) 06/15/19 14:24 MCH 27 pg (28-32) L 06/15/19 14:24 MCHC 33 % (30-34) 06/15/19 14:24 RDW 14.7 % (13.2-15.2) 06/15/19 14:24 Plt Count 191 K/mm3 (140-440) 06/15/19 20:39 Lymph # Telemarketing Supervisor 06/15/19 14:24 Add Manual Diff Complete 06/15/19 14:24 Total Counted 100 06/15/19 14:24 Seg Neuts % (Manual) 73.0 % (40.0-70.0) H 06/15/19 14:24 Band Neutrophils % 1.0 % 06/15/19 14:24 Lymphocytes % (Manual) 16.0 % (13.4-35.0) 06/15/19 14:24 Reactive Lymphs % (Man) 0 % 06/15/19 14:24 Monocytes % (Manual) 1.0 % (0.0-7.3) 06/15/19 14:24 Eosinophils % (Manual) 8.0 % (0.0-4.3) H 06/15/19 14:24 Basophils % (Manual) 1.0 % (0.0-1.8) 06/15/19 14:24 Metamyelocytes % 0 % 06/15/19 14:24 Myelocytes % 0 % 06/15/19 14:24 Promyelocytes % 0 % 06/15/19 14:24 Blast Cells % 0 % 06/15/19 14:24 Nucleated RBC % Not Reportable 06/15/19 14:24 Seg Neutrophils # Man 18.3 K/mm3 (1.8-7.7) H 06/15/19 14:24 Band Neutrophils # 0.3 K/mm3 06/15/19 14:24 Lymphocytes # (Manual) 4.0 K/mm3 (1.2-5.4) 06/15/19 14:24 Abs React Lymphs (Man) 0.0 K/mm3 06/15/19 14:24 Monocytes # (Manual) 0.3 K/mm3 (0.0-0.8) 06/15/19 14:24 Eosinophils # (Manual) 2.0 K/mm3 (0.0-0.4) H 06/15/19 14:24 Basophils # (Manual) 0.3 K/mm3 (0.0-0.1) H 06/15/19 14:24 Metamyelocytes # 0.0 K/mm3 06/15/19 14:24 Myelocytes # 0.0 K/mm3 06/15/19 14:24 Promyelocytes # 0.0 K/mm3 06/15/19 14:24 Blast Cells # 0.0 K/mm3 06/15/19 14:24 WBC Morphology Not Reportable 06/15/19 14:24 Hypersegmented Neuts Not Reportable 06/15/19 14:24 Hyposegmented Neuts Not Reportable 06/15/19 14:24 Hypogranular Neuts Not Reportable 06/15/19 14:24 Smudge Cells Not Reportable 06/15/19 14:24 Toxic Granulation Not Reportable 06/15/19 14:24 Toxic Vacuolation Not Reportable 06/15/19 14:24 Dohle Bodies Not Reportable 06/15/19 14:24 Pelger-Huet Anomaly Not Reportable 06/15/19 14:24 Alberto Rods Not Reportable 06/15/19 14:24 Platelet Estimate Consistent w auto 06/15/19 14:24 Clumped Platelets Not Reportable 06/15/19 14:24 Plt Clumps, EDTA Not Reportable 06/15/19 14:24 Large Platelets Not Reportable 06/15/19 14:24 Giant Platelets Not Reportable 06/15/19 14:24 Platelet Satelliting Not Reportable 06/15/19 14:24 Plt Morphology Comment Not Reportable 06/15/19 14:24 RBC Morphology Normal 06/15/19 14:24 Dimorphic RBCs Not Reportable 06/15/19 14:24 Polychromasia Not Reportable 06/15/19 14:24 Hypochromasia Not Reportable 06/15/19 14:24 Poikilocytosis Not Reportable 06/15/19 14:24 Anisocytosis Not Reportable 06/15/19 14:24 Microcytosis Not Reportable 06/15/19 14:24 Macrocytosis Not Reportable 06/15/19 14:24 Spherocytes Not Reportable 06/15/19 14:24 Pappenheimer Bodies Not Reportable 06/15/19 14:24 Sickle Cells Not Reportable 06/15/19 14:24 Target Cells Not Reportable 06/15/19 14:24 Tear Drop Cells Not Reportable 06/15/19 14:24 Ovalocytes Not Reportable 06/15/19 14:24 Helmet Cells Not Reportable 06/15/19 14:24 Magallanes-Brillion Bodies Not Reportable 06/15/19 14:24 D[place]den Rings Not Reportable 06/15/19 14:24 Danae Cells Not Reportable 06/15/19 14:24 Bite Cells Not Reportable 06/15/19 14:24 Crenated Cell Not Reportable 06/15/19 14:24 Elliptocytes Not Reportable 06/15/19 14:24 Acanthocytes (Spur) Not Reportable 06/15/19 14:24 Rouleaux Not Reportable 06/15/19 14:24 Hemoglobin C Crystals Not Reportable 06/15/19 14:24 Schistocytes Not Reportable 06/15/19 14:24 Malaria parasites Not Reportable 06/15/19 14:24 Arash Bodies Not Reportable 06/15/19 14:24 Hem Pathologist Commnt No 06/15/19 14:24 PT 13.3 Sec. (12.2-14.9) 06/15/19 20:39 INR 1.02 (0.87-1.13) 06/15/19 20:39 APTT 26.4 Sec. (24.2-36.6) 06/15/19 20:39 D-Dimer 209.61 ng/mlDDU (0-234) 06/15/19 14:24 Heparin Anti-Xa Level 0.17 U.I./ml (0.3-0.7) L 06/16/19 05:22 POC ABG pH 7.387 (7.35-7.45) 06/16/19 10:50 POC ABG pCO2 39.5 (35-45) 06/16/19 10:50 POC ABG pO2 131 (80-105) H 06/16/19 10:50 POC ABG HCO3 23.8 (22-26 mml/L) 06/16/19 10:50 POC ABG Total CO2 25 (23-27mmol/L) 06/16/19 10:50 POC ABG O2 Sat 99 06/16/19 10:50 POC ABG Base Excess -1 ((-2) - (+3)mmol/L) 06/16/19 10:50 FiO2 35 % 06/16/19 10:50 Sodium 140 mmol/L (137-145) 06/15/19 14:24 Potassium 4.1 mmol/L (3.6-5.0) 06/16/19 06:46 Chloride 103.6 mmol/L (98-107) 06/15/19 14:24 Carbon Dioxide 24 mmol/L (22-30) 06/15/19 14:24 Anion Gap 17 mmol/L 06/15/19 14:24 BUN 19 mg/dL (7-17) H 06/15/19 14:24 Creatinine 1.0 mg/dL (0.7-1.2) 06/15/19 14:24 Estimated GFR > 60 ml/min 06/15/19 14:24 BUN/Creatinine Ratio 19 % 06/15/19 14:24 Glucose 195 mg/dL (65-100) H 06/15/19 14:24 POC Glucose 205 (70-105) H 06/16/19 12:01 Calcium 8.8 mg/dL (8.4-10.2) 06/15/19 14:24 Total Creatine Kinase 870 units/L (30-135) H 06/16/19 06:46 CK-MB (CK-2) 11.5 ng/mL (0.0-4.0) H 06/16/19 06:46 CK-MB (CK-2) Rel Index 1.3 (0-4) 06/16/19 06:46 Troponin T 0.034 ng/mL (0.00-0.029) H D 06/16/19 05:22 NT-Pro-B Natriuret Pep 223.2 pg/mL (0-900) 06/15/19 16:01 Triglycerides 77 mg/dL (2-149) 06/15/19 16:01 Cholesterol 161 mg/dL (50-199) 06/15/19 16:01 LDL Cholesterol Direct 88 mg/dL (50-130) 06/15/19 16:01 HDL Cholesterol 71 mg/dL (40-59) H 06/15/19 16:01 Cholesterol/HDL Ratio 2.26 % 06/15/19 16:01 Lipase 30 units/L (13-60) 06/15/19 14:24 Active Medications - Current Medications Current Medications: Generic Name Dose Route Start Last Admin Trade Name Freq PRN Reason Stop Dose Admin Albuterol 2.5 mg 06/15/19 19:37 Proventil IH Q4H PRN Shortness Of Breath Albuterol/Ipratropium 1 ampul 06/15/19 20:00 06/16/19 14:34 Duoneb *Not For Prn Use* IH 1 ampul QIDRT [facility] Administration Amlodipine Besylate 10 mg 06/16/19 14:00 06/16/19 14:34 Amlodipine PO 10 mg QDAY [facility] Administration Clonidine HCl 0.2 mg 06/15/19 20:00 06/15/19 23:50 Catapres-Tts Patch TD 0.2 mg Joseph [facility]Y Administration Famotidine 20 mg 06/15/19 22:00 06/16/19 11:14 Pepcid IV 20 mg BID [facility]PSY Administration Hydralazine HCl 10 mg 06/15/19 19:27 06/16/19 08:40 Apresoline IV 10 mg Q3H PRN Administration Blood Pressure Hydralazine HCl 50 mg 06/16/19 16:00 Apresoline PO Q8HR [facility] Hydrophilic Ointment 1 applic 06/15/19 14:12 Vaseline Lip Therapy TP Q2HR PRN Dry Lips Propofol 1,000 mg in 100 mls @ 3.543 mls/hr 06/15/19 16:00 06/16/19 13:47 Diprivan 10 Mg/Ml IV 0 mcg/kg/min TITR [facility] 0 mls/hr Titration Protocol 5 MCG/KG/MIN Ceftriaxone Sodium 2 gm in 100 mls @ 200 mls/hr 06/15/19 20:00 06/15/19 20:00 Rocephin/Ns 2 Gm/100 Ml IV 200 mls/hr Q24H [facility] Administration Protocol Azithromycin 500 mg/ Sodium 250 mls @ 250 mls/hr 06/15/19 21:00 06/15/19 21:0 9 Chloride IV 250 mls/hr Q24H [facility] Administration Protocol Insulin Glargine 10 units 06/16/19 22:00 Lantus SUB-Q QHS [facility] Insulin Human Lispro 0 unit 06/15/19 20:00 06/16/19 12:20 Humalog SUB-Q 3 unit Q6HR [facility] Administration Protocol Lisinopril 10 mg 06/16/19 14:00 06/16/19 14:35 Zestril PO 10 mg QDAY [facility] Administration Methylprednisolone Sodium Succinate 125 mg 06/15/19 22:00 06/16/19 14:30 Solu-Medrol IV 125 mg Q8HR [facility] Administration Midazolam HCl 2 mg 06/15/19 14:48 Versed IV Q10MIN PRN Sedation Multi-Ingred Cream/Lotion/Oil/Oint 1 applic 06/15/19 14:12 Artificial Tears Ophth Oint OU Q4HR PRN Dry Eye(s) Pneumococcal Polyvalent Vaccine 0.5 ml 06/17/19 12:00 Pneumovax 23 IM 06/17/19 12:01 .ONCE ONE Sodium Chloride 10 ml 06/15/19 22:00 06/16/19 09:51 Sodium Chloride Flush Syringe 10 Ml IV 10 ml BID [facility] Administration Sodium Chloride 10 ml 06/15/19 14:14 06/15/19 19:10 Sodium Chloride Flush Syringe 10 Ml IV 10 ml PRN PRN Administration LINE FLUSH Nutrition/Malnutrition Assess - Dietary Evaluation Nutrition/Malnutrition Findings: Nutrition Notes Start: 06/16/19 10:19 Freq: Status: Active Protocol: Document 06/16/19 10:19 LM (Rec: 06/16/19 10:36 LM [id number]) Nutrition Notes Need for Assessment generated from: MD Order Initial or Follow up Assessment Current Diagnosis Diabetes,Hypertension, Respiratory Failure Other Pertinent Diagnosis asthma exacerbation Current Diet no diet Labs/Tests Reviewed Pertinent Medications Propofol at 3.543 ml/hr ( providing 94 kcal) Solumedrol Humalog Height 5 ft 11 in Weight 118.1 kg [place] Body Weight (kg) 70.45 BMI 36.3 Weight Status Obese Subjective/Other Information MD consult to evaluate nutritional intake. Pt on vent and unable to determine intakes and wt changes. Burn Absent Trauma Absent Minimum of two criteria No #1 Nutrition Diagnosis Inadequate oral intake Etiology Mechanical vent As Evidenced by Signs and Symptoms Pt NPO Is patient on ventilator? Yes Is Patient Ambulatory and/or Out of Bed No REE-([place]-confined to bed) 2262.216 Kcal/Kg value to use for calculation 15 Approximate Energy Requirements Using 1772 kcal/Kg Calculation Used for Recommendations Kcal/kg Additional Notes Protein: >141g (>2 g/kg IBW 70 .45 kg) Fluids: 1 ml/kcal Nutrition Intervention Change Diet Order: Recommend TF when medically feasible Nutrition Support: Vital HP 1.0 at 70 ml/hr Flush 50 ml q4hr Kcal 1,680 Protein (gm) 147 Fluid (mL) 1,404 Goal #1 TF start Anticipated Discharge Needs: unable to determine at this time Follow-Up By: 06/18/19 Additional Comments F/U for TF consult
[2019-06-16] MEDS ORDERED: hydrALAZINE 25 MG TAB ONE (16:17)
[2019-06-16] MEDS: hydrALAZINE 25 MG TAB PO SCH ×2 (16:20→22:41)
--- NOTE | 2019-06-16 16:43 | Event Note ---
Date: 06/16/19 Severe shortness of breath and wheezing since a.m. History of present illness: 53-year-old -[place] female with history of asthma, type 2 diabetes and hypertension intubated in the past once comes in for severe shortness of breath and wheezing since morning. Sudden onset. Patient was intubated in the past. No fever or chills. Patient uses nebulizer machine twice a day at home. No exacerbating or relieving factors. No recent travel. Patient was desaturating and was in low 80s because of which patient was intubated in the emergency room. Patient's ABG, CXR and hemodynamics were acceptable. Asked RT to extubate the patient and continue all therapies for AE-asthma. Once extubated, she can be sent to a monitored unit.
[2019-06-16] MEDS: cefTRIAXone/NS 2 GM/100 ML 2 GM/100 ML BAG IV SCH (20:20)
[2019-06-16] MEDS: AZITHROMYCIN 500 MG in SODIUM CHLORIDE 0.9% 250ML 250 ML IV SCH (21:40)
[2019-06-16] MEDS: INSULIN GLARGINE 100 UNITS/ML SUB-Q SCH (22:42)
[2019-06-17] MEDS: INSULIN LISPRO 100 UNIT/ML SUB-Q SCH ×5 (00:47→22:54)
[2019-06-17 06:11] LABS: Hematocrit 35.2 % (30.3-42.9); Hemoglobin 11.4 gm/dl (10.1-14.3); Mean Corpuscular HGB Conc 32 % (30-34); Mean Corpuscular Volume 82 fl (79-97); Platelet Count 211 K/mm3 (140-440); Red Blood Count 4.31 M/mm3 (3.65-5.03); Red Cell Distribution Width 14.6 % (13.2-15.2)
[2019-06-17] MEDS: methylPREDNISolone Sod Succinate 125 MG/2 ML INJ IV SCH ×2 (06:17→17:22)
[2019-06-17] MEDS: hydrALAZINE 25 MG TAB PO SCH ×3 (06:17→21:19)
[2019-06-17 09:51] LABS: Basophils % (Manual) 0 % (0.0-1.8); Eosinophils % (Manual) 0 % (0.0-4.3); Total Cells Counted 100
[2019-06-17 09:52] LABS: Platelet Estimate Consistent w Auto; RBC Morphology Normal; Toxic Granulation 1+
--- NOTE | 2019-06-17 10:00 | Consultation ---
History of Present Illness Consult date: 06/17/19 Reason for consult: asthma History of present illness: PULMONARY AND CRITICAL CARE CONSULTATION. DR. SCHILLING THANK YOU FOR ASKING US TO PARTICIPATE IN THE CARE OF THIS PATIENT. 53-year-old -Citizen Of [place] female with history of asthma, type 2 diabetes and hypertension intubated in the past once comes in for severe shortness of breath and wheezing since morning. Sudden onset. Patient was intubated in the past. No fever or chills. Patient uses nebulizer machine twice a day at home. No exacerbating or relieving factors. No recent travel. Patient was desaturating and was in low 80s because of which patient was intubated in the emergency room. Patient Extubated and presently resting on 2 litres O2. O2 saturation 99%. Patient says breathing better. Chest xray no acute pulmonary infiltrates. Patient no history of smoking, alcohol or drug abuse. Works as teacher. Allergic to shell fish. Denied cough and nasal congestion. Past History Past Medical History: diabetes, hypertension, other (asthma) Medications and Allergies Allergies Allergy/AdvReac Type Severity Reaction Status Date / Time seafood, shellfish Allergy Rash Uncoded 04/12/16 21:12 Home Medications Medication Instructions Recorded Confirmed Last Taken Type ALBUTEROL Inhaler (OR & NICU) 2 puff IH Q4H PRN 06/16/19 06/16/19 06/15/19 History [Proair] ALBUTEROL NEB's [Proventil] 2.5 mg IH Q4H PRN 06/16/19 06/16/19 06/15/19 History Amlodipine Besylate [Norvasc] 5 mg PO QDAY 06/16/19 06/16/19 06/15/19 History Lisinopril [Zestril TAB] 10 mg PO QDAY 06/16/19 06/16/19 06/15/19 History Rosuvastatin Calcium [Crestor] 10 mg PO DAILY 06/16/19 06/16/19 06/15/19 History glipiZIDE [Glucotrol] 10 mg PO BID 06/16/19 06/16/19 06/15/19 History Active Meds: Active Medications Albuterol (Proventil) 2.5 mg IH Q4H PRN PRN Reason: Shortness Of Breath Albuterol/Ipratropium (Duoneb *Not For Prn Use*) 1 ampul IH QIDRT [facility] Last Admin: 06/16/19 19:59 Dose: 1 ampul Documented by: Amlodipine Besylate (Amlodipine) 10 mg PO QDAY [facility] Last Admin: 06/16/19 14:34 Dose: 10 mg Documented by: Clonidine HCl (Catapres-Tts Patch) 0.2 mg TD Joseph [facility] Last Admin: 06/15/19 23:50 Dose: 0.2 mg Documented by: Enoxaparin Sodium (Enoxaparin) 40 mg SUB-Q QDAY [facility] Famotidine (Pepcid) 20 mg PO BID [facility] Hydralazine HCl (Apresoline) 10 mg IV Q3H PRN PRN Reason: SBP >/=160 Last Admin: 06/16/19 08:40 Dose: 10 mg Documented by: Hydralazine HCl (Apresoline) 50 mg PO Q8HR [facility] Last Admin: 06/17/19 06:17 Dose: 50 mg Documented by: Hydrophilic Ointment (Vaseline Lip Therapy) 1 applic TP Q2HR PRN PRN Reason: Dry Lips Ceftriaxone Sodium (Rocephin/Ns 2 Gm/100 Ml) 2 gm in 100 mls @ 200 mls/hr IV Q24H [facility]; Protocol Stop: 06/19/19 20:29 Last Admin: 06/16/19 20:20 Dose: 200 mls/hr Documented by: Azithromycin 500 mg/ Sodium (Chloride) 250 mls @ 250 mls/hr IV Q24H [facility]; Protocol Stop: 06/19/19 21:59 Last Admin: 06/16/19 21:40 Dose: 250 mls/hr Documented by: Insulin Glargine (Lantus) 10 units SUB-Q QHS [facility] Last Admin: 06/16/19 22:42 Dose: 10 units Documented by: Insulin Human Lispro (Humalog) 0 unit SUB-Q ACHS [facility]; Protocol Lisinopril (Zestril) 10 mg PO QDAY [facility] Last Admin: 06/16/19 14:35 Dose: 10 mg Documented by: Methylprednisolone Sodium Succinate (Solu-Medrol) 80 mg IV Q8HR [facility] Last Admin: 06/17/19 06:17 Dose: 80 mg Documented by: Multi-Ingred Cream/Lotion/Oil/Oint (Artificial Tears Ophth Oint) 1 applic OU Q4HR PRN PRN Reason: Dry Eye(s) Pantoprazole Sodium (Protonix) 40 mg PO QDAY [facility] Pneumococcal Polyvalent Vaccine (Pneumovax 23) 0.5 ml IM .ONCE ONE Stop: 06/17/19 12:01 Sodium Chloride (Sodium Chloride Flush Syringe 10 Ml) 10 ml IV BID GYPSY Last Admin: 06/16/19 22:41 Dose: 10 ml Documented by: Sodium Chloride (Sodium Chloride Flush Syringe 10 Ml) 10 ml IV PRN PRN PRN Reason: LINE FLUSH Last Admin: 06/15/19 19:10 Dose: 10 ml Documented by: Review of Systems All systems: negative Physical Examination Vital signs: Vital Signs Pulse Resp BP Pulse Ox 130 H 19 170/113 100 06/15/19 14:24 06/15/19 14:24 06/15/19 14:24 06/15/19 14:24 General appearance: no acute distress, alert Eyes: non-icteric ENT: oropharynx moist Neck: supple, no JVD Ascultation: Bilateral: wheezes, rhonchi Cardiovascular: regular rate and rhythm Gastrointestinal: normoactive bowel sounds, soft, non-tender Integumentary: normal Extremities: no cyanosis, no edema Musculoskeletal: no deformities Gait: other (Resting in bed.) normal mental status, non-focal exam, pupils equal and round, CN II-XII normal mood appropriate Results - Laboratory Findings CBC and BMP: 06/17/19 05:41 06/16/19 06:46 ABG POC ABG pH 7.387 (7.35-7.45) 06/16/19 10:50 POC ABG pCO2 39.5 (35-45) 06/16/19 10:50 POC ABG pO2 131 (80-105) H 06/16/19 10:50 POC ABG HCO3 23.8 (22-26 mml/L) 06/16/19 10:50 POC ABG Total CO2 25 (23-27mmol/L) 06/16/19 10:50 POC ABG O2 Sat 99 06/16/19 10:50 PT/INR, D-dimer PT 13.3 Sec. (12.2-14.9) 06/15/19 20:39 INR 1.02 (0.87-1.13) 06/15/19 20:39 D-Dimer 209.61 ng/mlDDU (0-234) 06/15/19 14:24 Abnormal lab findings: Abnormal Labs 06/15/19 06/15/19 06/15/19 14:03 14:24 14:24 WBC 25.0 H MCH 27 L Seg Neuts % (Manual) 73.0 H Lymphocytes % (Manual) Eosinophils % (Manual) 8.0 H Seg Neutrophils # Man 18.3 H Lymphocytes # (Manual) Eosinophils # (Manual) 2.0 H Basophils # (Manual) 0.3 H Heparin Anti-Xa Level POC ABG pH POC ABG pCO2 POC ABG pO2 BUN 19 H Glucose 195 H POC Glucose 261 H Total Creatine Kinase CK-MB (CK-2) Troponin T HDL Cholesterol 06/15/19 06/15/19 06/15/19 16:01 16:34 20:39 WBC MCH Seg Neuts % (Manual) Lymphocytes % (Manual) Eosinophils % (Manual) Seg Neutrophils # Man Lymphocytes # (Manual) Eosinophils # (Manual) Basophils # (Manual) Heparin Anti-Xa Level POC ABG pH 7.326 L POC ABG pCO2 48.5 H POC ABG pO2 153 H BUN Glucose POC Glucose Total Creatine Kinase CK-MB (CK-2) Troponin T 0.033 H D 0.059 H D HDL Cholesterol 71 H 06/15/19 06/15/19 06/16/19 20:39 20:42 00:33 WBC MCH Seg Neuts % (Manual) Lymphocytes % (Manual) Eosinophils % (Manual) Seg Neutrophils # Man Lymphocytes # (Manual) Eosinophils # (Manual) Basophils # (Manual) Heparin Anti-Xa Level POC ABG pH POC ABG pCO2 POC ABG pO2 BUN Glucose POC Glucose 195 H 214 H Total Creatine Kinase 832 H CK-MB (CK-2) 11.8 H Troponin T HDL Cholesterol 06/16/19 06/16/19 06/16/19 01:53 05:22 05:22 WBC MCH Seg Neuts % (Manual) Lymphocytes % (Manual) Eosinophils % (Manual) Seg Neutrophils # Man Lymphocytes # (Manual) Eosinophils # (Manual) Basophils # (Manual) Heparin Anti-Xa Level 0.17 L POC ABG pH POC ABG pCO2 POC ABG pO2 BUN Glucose POC Glucose Total Creatine Kinase 887 H CK-MB (CK-2) 12.0 H Troponin T 0.034 H D HDL Cholesterol 06/16/19 06/16/19 06/16/19 06:07 06:46 10:50 WBC MCH Seg Neuts % (Manual) Lymphocytes % (Manual) Eosinophils % (Manual) Seg Neutrophils # Man Lymphocytes # (Manual) Eosinophils # (Manual) Basophils # (Manual) Heparin Anti-Xa Level POC ABG pH POC ABG pCO2 POC ABG pO2 131 H BUN Glucose POC Glucose 186 H Total Creatine Kinase 870 H CK-MB (CK-2) 11.5 H Troponin T HDL Cholesterol 06/16/19 06/16/19 06/17/19 12:01 19:16 00:25 WBC MCH Seg Neuts % (Manual) Lymphocytes % (Manual) Eosinophils % (Manual) Seg Neutrophils # Man Lymphocytes # (Manual) Eosinophils # (Manual) Basophils # (Manual) Heparin Anti-Xa Level POC ABG pH POC ABG pCO2 POC ABG pO2 BUN Glucose POC Glucose 205 H 292 H 382 H Total Creatine Kinase CK-MB (CK-2) Troponin T HDL Cholesterol 06/17/19 06/17/19 05:41 06:19 WBC 12.8 H MCH 26 L Seg Neuts % (Manual) 97.0 H Lymphocytes % (Manual) 2.0 L Eosinophils % (Manual) Seg Neutrophils # Man 12.4 H Lymphocytes # (Manual) 0.3 L Eosinophils # (Manual) Basophils # (Manual) Heparin Anti-Xa Level POC ABG pH POC ABG pCO2 POC ABG pO2 BUN Glucose POC Glucose 159 H Total Creatine Kinase CK-MB (CK-2) Troponin T HDL Cholesterol - Diagnostic Findings Chest x-ray: report reviewed (No significant abnormalities.), image reviewed Assessment and Plan 53-year-old -Citizen Of [place] female with history of asthma, type 2 diabetes and hypertension intubated in the past once comes in for severe shortness of breath and wheezing since morning. Sudden onset. Patient was intubated in the past. No fever or chills. Patient uses nebulizer machine twice a day at home. No exacerbating or relieving factors. No recent travel. Patient was desaturating and was in low 80s because of which patient was intubated in the emergency room. Patient Extubated and presently resting on 2 litres O2. O2 saturation 99%. Patient says breathing better. Chest xray no acute pulmonary infiltrates. Patient no history of smoking, alcohol or drug abuse. Works as teacher. Allergic to shell fish. Denied cough and nasal congestion. - Patient Problems (1) Acute respiratory failure Current Visit: Yes Status: Resolved Qualifiers: Respiratory failure complication: hypoxia Qualified Code(s): J96.01 - Acute respiratory failure with hypoxia Plan to address problem: Patient intubated and extubated. Presently resting on 2L O2. O2 saturation 99%. Albuterol and Atrovent aerosol treatment Q6h Continue IV solumedrol Continue IV Rocephin and Zithromax Continue SC Lovenox. Continue Famotadine (2) Asthma exacerbation Current Visit: Yes Status: Acute Qualifiers: Asthma severity: severe Asthma persistence: persistent Qualified Code(s): J45.51 - Severe persistent asthma with (acute) exacerbation Plan to address problem: Patient intubated and extubated. Presently resting on 2L O2. O2 saturation 99%. Albuterol and Atrovent aerosol treatment Q6h Continue IV solumedrol Continue IV Rocephin and Zithromax Continue SC Lovenox. Continue Famotadine PFTs as an outpatient
[2019-06-17] MEDS: IPRATROPIUM/ALBUTEROL SULFATE 3 ML AMPUL.NEB IH SCH ×3 (10:09→20:47)
[2019-06-17] MEDS: PANTOPRAZOLE 40 MG TAB PO SCH (10:11)
[2019-06-17] MEDS: amLODIPine 10 MG TAB PO SCH (10:11)
[2019-06-17] MEDS: LISINOPRIL 10 MG TAB PO SCH (10:11)
[2019-06-17] MEDS: ENOXAPARIN 80 MG/0.8 ML INJ SUB-Q SCH (10:12)
[2019-06-17] MEDS: FAMOTIDINE 20 MG TAB PO SCH ×3 (10:12→21:19)
[2019-06-17] MEDS ORDERED: LISINOPRIL 10 MG TAB PO SCH (10:32)
--- NOTE | 2019-06-17 10:32 | Progress Note ---
Assessment and Plan Echo reviewed - EF 50-55%, RVSP 25mmHg, no significant abnormalities. Currently stable cardiac status. Minimally elevated troponins appear nonspecific. No plans for additional cardiac w/u at this time. Pt may discharge home from cardiology standpoint. The patient has been seen in conjunction with Dr. Elise who agrees with the assessment and plan of care. - Patient Problems (1) Acute respiratory failure Current Visit: Yes Status: Resolved Qualifiers: Respiratory failure complication: hypoxia Qualified Code(s): J96.01 - Acute respiratory failure with hypoxia (2) Asthma exacerbation Current Visit: Yes Status: Acute Qualifiers: Asthma severity: severe Asthma persistence: persistent Qualified Code(s): J45.51 - Severe persistent asthma with (acute) exacerbation (3) Elevated troponin Current Visit: Yes Status: Acute (4) Hypertension Current Visit: Yes Status: Chronic Qualifiers: Hypertension type: essential hypertension Qualified Code(s): I10 - Essential (primary) hypertension (5) Type 2 diabetes mellitus Current Visit: Yes Status: Chronic Qualifiers: Diabetes mellitus buttermaker helper insulin use: without senior living use (6) Leukocytosis Current Visit: Yes Status: Acute Subjective Date of service: 06/17/19 Principal diagnosis: asthma exacerbation; acute repiratory failure Interval history: Pt resting in bed, she has been extubated, she states she is feeling much better. in SR on tele. Objective Last Vital Signs Temp 98.0 F 06/17/19 07:40 Pulse 92 H 06/17/19 06:17 Resp 18 06/17/19 07:40 BP 153/78 06/17/19 07:40 Pulse Ox 95 06/17/19 03:58 - Physical Examination General: No Apparent Distress HEENT: Positive: PERRL Neck: Positive: neck supple, trachea midline Cardiac: Positive: Reg Rate and Rhythm, S1/S2 Lungs: Positive: Decreased Breath Sounds Neuro: Positive: Grossly Intact Abdomen: Negative: Tender Skin: Negative: Rash Musculoskeletal: No Pain Extremities: Absent: edema - Labs and Meds CBC 06/17/19 Range/Units 05:41 WBC 12.8 H (4.5-11.0) K/mm3 RBC 4.31 (3.65-5.03) M/mm3 Hgb 11.4 (10.1-14.3) gm/dl Hct 35.2 (30.3-42.9) % Plt Count 211 (140-440) K/mm3 - Imaging and Cardiology EKG: report reviewed, image reviewed Echo: report reviewed - Telemetry EKG Rhythm: Sinus Rhythm - EKG Sinus rhythms and dysrhythmias: sinus rhythm Repolarization changes or abnormalities: repolarization abn secondary to ventricular hypertrophy
[2019-06-17 10:56] LABS: Bilirubin,Urine NEG (Negative); Blood,Urine SM (Negative); Color,Urine Yellow (Yellow); Mucus,Urine FEW /HPF; Urobilinogen,Urine < 2.0 mg/dL (<2.0)
[2019-06-17] MEDS ORDERED: PNEUMOCOCCAL 23 Valent 0.5 ML VIAL IM ONE (12:00)
[2019-06-17] MEDS ORDERED: FLU VACC QUAD 2019-20 (3 YR UP)/PF 60 MCG/0.5 ML SYRINGE IM ONE (12:00)
[2019-06-17] MEDS: LISINOPRIL 20 MG TAB PO SCH (12:16)
[2019-06-17] MEDS ORDERED: ALBUTEROL 2.5 MG/3 ML NEBU IH PRN ×2 (13:38→14:02)
[2019-06-17] MEDS ORDERED: methylPREDNISolone Sod Succinate 125 MG/2 ML INJ IV SCH (15:00)
[2019-06-17] MEDS: methylPREDNISolone Sod Succinate 40 MG/1 ML INJ IV SCH (17:05)
[2019-06-17] MEDS: glipiZIDE 10 MG TAB PO SCH (17:06)
--- NOTE | 2019-06-17 17:08 | Progress Note ---
Assessment and Plan Assessment and plan: 53-year-old -[place] female with history of asthma, type 2 diabetes and hypertension intubated in the past once comes in for severe shortness of breath and wheezing since morning. Sudden onset. Patient was intubated in the past. No fever or chills. Patient uses nebulizer machine twice a day at home. No exacerbating or relieving factors. No recent travel. Patient was desaturating and was in low 80s because of which patient was intubated in the emergency room. Acute resp failure with hypoxia status post intubation -Now extubated and saturating well on nasal cannula -Continue oxygen supplementation as needed and neb tx -Echo reviewed - EF 50-55%, RVSP 25mmHg, no significant abnormalities. Status asthmaticus -Improved -Continue IV steroid, antibiotic and neb tx SIRS -Probably secondary to acute bronchitis versus early PNA -UA pending -Continue IV antibiotics -Sputum and blood cultures pending DM2 with hyperglycemia -on SSI and Lantus Hypertensive urgency -Blood pressure uncontrolled -Antihypertensives adjusted, monitor BP Elevated troponin -Probably secondary to demand ischemia due to hypoxia -level trended down -echo pending -cardiology following Obesity with BMI of 36.3 -Lifestyle modification recommended DVT ppx: Lovenox GI ppx: Protonix Disp: anticipate in am Check home oxygen History Interval history: Patient seen and examined, reports some improvement in symptoms. Hospitalist Physical - Constitutional Vitals: Temp Pulse Resp BP Pulse Ox 98.3 F 87 18 136/56 99 06/17/19 16:03 06/17/19 13:26 06/17/19 16:03 06/17/19 16:03 06/17/19 13:35 General appearance: Present: no acute distress, obese Results - Labs CBC & Chem 7: 06/17/19 05:41 06/16/19 06:46 Labs: Laboratory Last Values WBC 12.8 K/mm3 (4.5-11.0) H 06/17/19 05:41 RBC 4.31 M/mm3 (3.65-5.03) 06/17/19 05:41 Hgb 11.4 gm/dl (10.1-14.3) 06/17/19 05:41 Hct 35.2 % (30.3-42.9) 06/17/19 05:41 MCV 82 fl (79-97) 06/17/19 05:41 MCH 26 pg (28-32) L 06/17/19 05:41 MCHC 32 % (30-34) 06/17/19 05:41 RDW 14.6 % (13.2-15.2) 06/17/19 05:41 Plt Count 211 K/mm3 (140-440) 06/17/19 05:41 Lymph # Video Producer 06/15/19 14:24 Add Manual Diff Complete 06/17/19 05:41 Total Counted 100 06/17/19 05:41 Seg Neutrophils % Video Producer 06/17/19 05:41 Seg Neuts % (Manual) 97.0 % (40.0-70.0) H 06/17/19 05:41 Band Neutrophils % 0 % 06/17/19 05:41 Lymphocytes % (Manual) 2.0 % (13.4-35.0) L 06/17/19 05:41 Reactive Lymphs % (Man) 0 % 06/17/19 05:41 Monocytes % (Manual) 1.0 % (0.0-7.3) 06/17/19 05:41 Eosinophils % (Manual) 0 % (0.0-4.3) 06/17/19 05:41 Basophils % (Manual) 0 % (0.0-1.8) 06/17/19 05:41 Metamyelocytes % 0 % 06/17/19 05:41 Myelocytes % 0 % 06/17/19 05:41 Promyelocytes % 0 % 06/17/19 05:41 Blast Cells % 0 % 06/17/19 05:41 Nucleated RBC % Not Reportable 06/17/19 05:41 Seg Neutrophils # Man 12.4 K/mm3 (1.8-7.7) H 06/17/19 05:41 Band Neutrophils # 0.0 K/mm3 06/17/19 05:41 Lymphocytes # (Manual) 0.3 K/mm3 (1.2-5.4) L 06/17/19 05:41 Abs React Lymphs (Man) 0.0 K/mm3 06/17/19 05:41 Monocytes # (Manual) 0.1 K/mm3 (0.0-0.8) 06/17/19 05:41 Eosinophils # (Manual) 0.0 K/mm3 (0.0-0.4) 06/17/19 05:41 Basophils # (Manual) 0.0 K/mm3 (0.0-0.1) 06/17/19 05:41 Metamyelocytes # 0.0 K/mm3 06/17/19 05:41 Myelocytes # 0.0 K/mm3 06/17/19 05:41 Promyelocytes # 0.0 K/mm3 06/17/19 05:41 Blast Cells # 0.0 K/mm3 06/17/19 05:41 WBC Morphology Not Reportable 06/17/19 05:41 Hypersegmented Neuts Not Reportable 06/17/19 05:41 Hyposegmented Neuts Not Reportable 06/17/19 05:41 Hypogranular Neuts Not Reportable 06/17/19 05:41 Smudge Cells Not Reportable 06/17/19 05:41 Toxic Granulation 1+ 06/17/19 05:41 Toxic Vacuolation Not Reportable 06/17/19 05:41 Dohle Bodies Not Reportable 06/17/19 05:41 Pelger-Huet Anomaly Not Reportable 06/17/19 05:41 Alberto Rods Not Reportable 06/17/19 05:41 Platelet Estimate Consistent w auto 06/17/19 05:41 Clumped Platelets Not Reportable 06/17/19 05:41 Plt Clumps, EDTA Not Reportable 06/17/19 05:41 Large Platelets Not Reportable 06/17/19 05:41 Giant Platelets Not Reportable 06/17/19 05:41 Platelet Satelliting Not Reportable 06/17/19 05:41 Plt Morphology Comment Not Reportable 06/17/19 05:41 RBC Morphology Normal 06/17/19 05:41 Dimorphic RBCs Not Reportable 06/17/19 05:41 Polychromasia Not Reportable 06/17/19 05:41 Hypochromasia Not Reportable 06/17/19 05:41 Poikilocytosis Not Reportable 06/17/19 05:41 Anisocytosis Not Reportable 06/17/19 05:41 Microcytosis Not Reportable 06/17/19 05:41 Macrocytosis Not Reportable 06/17/19 05:41 Spherocytes Not Reportable 06/17/19 05:41 Pappenheimer Bodies Not Reportable 06/17/19 05:41 Sickle Cells Not Reportable 06/17/19 05:41 Target Cells Not Reportable 06/17/19 05:41 Tear Drop Cells Not Reportable 06/17/19 05:41 Ovalocytes Not Reportable 06/17/19 05:41 Helmet Cells Not Reportable 06/17/19 05:41 Magallanes-[place] Bodies Not Reportable 06/17/19 05:41 L[place]is Rings Not Reportable 06/17/19 05:41 Manson Cells Not Reportable 06/17/19 05:41 Bite Cells Not Reportable 06/17/19 05:41 Crenated Cell Not Reportable 06/17/19 05:41 Elliptocytes Not Reportable 06/17/19 05:41 Acanthocytes (Spur) Not Reportable 06/17/19 05:41 Rouleaux Not Reportable 06/17/19 05:41 Hemoglobin C Crystals Not Reportable 06/17/19 05:41 Schistocytes Not Reportable 06/17/19 05:41 Malaria parasites Not Reportable 06/17/19 05:41 Arash Bodies Not Reportable 06/17/19 05:41 Hem Pathologist Commnt No 06/17/19 05:41 PT 13.3 Sec. (12.2-14.9) 06/15/19 20:39 INR 1.02 (0.87-1.13) 06/15/19 20:39 APTT 26.4 Sec. (24.2-36.6) 06/15/19 20:39 D-Dimer 209.61 ng/mlDDU (0-234) 06/15/19 14:24 Heparin Anti-Xa Level 0.17 U.I./ml (0.3-0.7) L 06/16/19 05:22 POC ABG pH 7.387 (7.35-7.45) 06/16/19 10:50 POC ABG pCO2 39.5 (35-45) 06/16/19 10:50 POC ABG pO2 131 (80-105) H 06/16/19 10:50 POC ABG HCO3 23.8 (22-26 mml/L) 06/16/19 10:50 POC ABG Total CO2 25 (23-27mmol/L) 06/16/19 10:50 POC ABG O2 Sat 99 06/16/19 10:50 POC ABG Base Excess -1 ((-2) - (+3)mmol/L) 06/16/19 10:50 FiO2 35 % 06/16/19 10:50 Sodium 140 mmol/L (137-145) 06/15/19 14:24 Potassium 4.1 mmol/L (3.6-5.0) 06/16/19 06:46 Chloride 103.6 mmol/L (98-107) 06/15/19 14:24 Carbon Dioxide 24 mmol/L (22-30) 06/15/19 14:24 Anion Gap 17 mmol/L 06/15/19 14:24 BUN 19 mg/dL (7-17) H 06/15/19 14:24 Creatinine 1.0 mg/dL (0.7-1.2) 06/15/19 14:24 Estimated GFR > 60 ml/min 06/15/19 14:24 BUN/Creatinine Ratio 19 % 06/15/19 14:24 Glucose 195 mg/dL (65-100) H 06/15/19 14:24 POC Glucose 236 (70-105) H 06/17/19 16:10 Calcium 8.8 mg/dL (8.4-10.2) 06/15/19 14:24 Total Creatine Kinase 870 units/L (30-135) H 06/16/19 06:46 CK-MB (CK-2) 11.5 ng/mL (0.0-4.0) H 06/16/19 06:46 CK-MB (CK-2) Rel Index 1.3 (0-4) 06/16/19 06:46 Troponin T 0.034 ng/mL (0.00-0.029) H D 06/16/19 05:22 NT-Pro-B Natriuret Pep 223.2 pg/mL (0-900) 06/15/19 16:01 Triglycerides 77 mg/dL (2-149) 06/15/19 16:01 Cholesterol 161 mg/dL (50-199) 06/15/19 16:01 LDL Cholesterol Direct 88 mg/dL (50-130) 06/15/19 16:01 HDL Cholesterol 71 mg/dL (40-59) H 06/15/19 16:01 Cholesterol/HDL Ratio 2.26 % 06/15/19 16:01 Lipase 30 units/L (13-60) 06/15/19 14:24 Urine Color Yellow (Yellow) 06/17/19 10:20 Urine Turbidity Cloudy (Clear) 06/17/19 10:20 Urine pH 5.0 (5.0-7.0) 06/17/19 10:20 Ur Specific Palmer 1.021 (1.003-1.030) 06/17/19 10:20 Urine Protein 100 mg/dl mg/dL (Negative) 06/17/19 10:20 Urine Glucose (UA) Neg mg/dL (Negative) 06/17/19 10:20 Urine Ketones Neg mg/dL (Negative) 06/17/19 10:20 Urine Blood Sm (Negative) 06/17/19 10:20 Urine Nitrite Neg (Negative) 06/17/19 10:20 Urine Bilirubin Neg (Negative) 06/17/19 10:20 Urine Urobilinogen < 2.0 mg/dL (<2.0) 06/17/19 10:20 Ur Leukocyte Esterase Sm (Negative) 06/17/19 10:20 Urine WBC (Auto) 13.0 /HPF (0.0-6.0) H 06/17/19 10:20 Urine RBC (Auto) 32.0 /HPF (0.0-6.0) 06/17/19 10:20 U Epithel Cells (Auto) 2.0 /HPF (0-13.0) 06/17/19 10:20 Uric Acid Crystals 3+ 06/17/19 10:20 Urine Mucus Few /HPF 06/17/19 10:20 Active Medications - Current Medications Current Medications: Generic Name Dose Route Start Last Admin Trade Name Freq PRN Reason Stop Dose Admin Albuterol 2.5 mg 06/17/19 13:38 Proventil IH Q4H PRN Shortness Of Breath,WHEEZING Albuterol/Ipratropium 1 ampul 06/17/19 20:00 Duoneb *Not For Prn Use* IH TIDRT GYPSY Amlodipine Besylate 10 mg 06/16/19 14:00 06/17/19 10:11 Amlodipine PO 10 mg QDAY GYPSY Administration Arformoterol Tartrate 15 mcg 06/17/19 20:00 Brovana Nebu IH Q12HRT GYPSY Atorvastatin Calcium 20 mg 06/17/19 22:00 Lipitor PO QHS GYPSY Budesonide 0.5 mg 06/17/19 20:00 Pulmicort IH Q12HRT GYPSY Clonidine HCl 0.2 mg 06/15/19 20:00 06/15/19 23:50 Catapres-Tts Patch TD 0.2 mg Joseph GYPSY Administration Enoxaparin Sodium 40 mg 06/17/19 10:00 06/17/19 10:12 Enoxaparin SUB-Q 40 mg QDAY GYPSY Administration Famotidine 20 mg 06/17/19 10:00 06/17/19 10:14 Pepcid PO Not Given BID GYPSY Glipizide 10 mg 06/17/19 17:00 06/17/19 17:06 Glucotrol PO 10 mg BIDDIAB GYPSY Administration Hydralazine HCl 10 mg 06/15/19 19:27 06/16/19 08:40 Apresoline IV 10 mg Q3H PRN Administration SBP >/=160 Hydralazine HCl 50 mg 06/16/19 16:00 06/17/19 14:15 Apresoline PO 50 mg Q8HR GYPSY Administration Hydrophilic Ointment 1 applic 06/15/19 14:12 Vaseline Lip Therapy TP Q2HR PRN Dry Lips Ceftriaxone Sodium 2 gm in 100 mls @ 200 mls/hr 06/15/19 20:00 06/16/19 20:20 Rocephin/Ns 2 Gm/100 Ml IV 06/19/19 20:29 200 mls/hr Q24H GYPSY Administration Protocol Azithromycin 500 mg/ Sodium 250 mls @ 250 mls/hr 06/15/19 21:00 06/16/19 21:40 Chloride IV 06/19/19 21:59 250 mls/hr Q24H GYPSY Administration Protocol Insulin Glargine 10 units 06/16/19 22:00 06/16/19 22:42 Lantus SUB-Q 10 units QHS GYPSY Administration Insulin Human Lispro 0 unit 06/17/19 11:30 06/17/19 17:07 Humalog SUB-Q 3 unit ACHS GYPSY Administration Protocol Lisinopril 20 mg 06/17/19 10:30 06/17/19 12:16 Zestril PO 10 mg QDAY GYPSY Administration Methylprednisolone Sodium Succinate 40 mg 06/17/19 15:00 06/17/19 17:05 Solu-Medrol IV 40 mg Q12H GYPSY Administration Multi-Ingred Cream/Lotion/Oil/Oint 1 applic 06/15/19 14:12 Artificial Tears Ophth Oint OU Q4HR PRN Dry Eye(s) Pantoprazole Sodium 40 mg 06/17/19 10:00 06/17/19 10:11 Protonix PO 40 mg QDAY GYPSY Administration Sodium Chloride 10 ml 06/15/19 22:00 06/17/19 10:12 Sodium Chloride Flush Syringe 10 Ml IV 10 ml BID GYPSY Administration Sodium Chloride 10 ml 06/15/19 14:14 06/15/19 19:10 Sodium Chloride Flush Syringe 10 Ml IV 10 ml PRN PRN Administration LINE FLUSH Nutrition/Malnutrition Assess - Dietary Evaluation Nutrition/Malnutrition Findings: Nutrition Notes Start: 06/16/19 10:19 Freq: Status: Active Protocol: Document 06/16/19 10:19 LM (Rec: 06/16/19 10:36 LM [email or web address]) Nutrition Notes Need for Assessment generated from: MD Order Initial or Follow up Assessment Current Diagnosis Diabetes,Hypertension, Respiratory Failure Other Pertinent Diagnosis asthma exacerbation Current Diet no diet Labs/Tests Reviewed Pertinent Medications Propofol at 3.543 ml/hr ( providing 94 kcal) Solumedrol Humalog Height 5 ft 11 in Weight 118.1 kg [place] Body Weight (kg) 70.45 BMI 36.3 Weight Status Obese Subjective/Other Information MD consult to evaluate nutritional intake. Pt on vent and unable to determine intakes and wt changes. Burn Absent Trauma Absent Minimum of two criteria No #1 Nutrition Diagnosis Inadequate oral intake Etiology Mechanical vent As Evidenced by Signs and Symptoms Pt NPO Is patient on ventilator? Yes Is Patient Ambulatory and/or Out of Bed No REE-([facility]-confined to bed) 2262.216 Kcal/Kg value to use for calculation 15 Approximate Energy Requirements Using 1772 kcal/Kg Calculation Used for Recommendations Kcal/kg Additional Notes Protein: >141g (>2 g/kg IBW 70 .45 kg) Fluids: 1 ml/kcal Nutrition Intervention Change Diet Order: Recommend TF when medically feasible Nutrition Support: Vital HP 1.0 at 70 ml/hr Flush 50 ml q4hr Kcal 1,680 Protein (gm) 147 Fluid (mL) 1,404 Goal #1 TF start Anticipated Discharge Needs: unable to determine at this time Follow-Up By: 06/18/19 Additional Comments F/U for TF consult
[2019-06-17] MEDS: cefTRIAXone/NS 2 GM/100 ML 2 GM/100 ML BAG IV SCH (20:39)
[2019-06-17] MEDS: BUDESONIDE 0.5 MG/2 ML NEBU IH SCH (20:47)
[2019-06-17] MEDS: ARFORMOTEROL 15 MCG/2 ML NEBU IH SCH (20:47)
[2019-06-17] MEDS: AZITHROMYCIN 500 MG in SODIUM CHLORIDE 0.9% 250ML 250 ML IV SCH (21:25)
[2019-06-17] MEDS: INSULIN GLARGINE 100 UNITS/ML SUB-Q SCH (22:54)
[2019-06-18] MEDS: methylPREDNISolone Sod Succinate 40 MG/1 ML INJ IV SCH (03:30)
[2019-06-18 04:26] LABS: Hematocrit 36.3 % (30.3-42.9); Hemoglobin 11.7 gm/dl (10.1-14.3); Mean Corpuscular HGB Conc 32 % (30-34); Mean Corpuscular Volume 82 fl (79-97); Platelet Count 198 K/mm3 (140-440); Red Cell Distribution Width 14.4 % (13.2-15.2)
[2019-06-18] MEDS: hydrALAZINE 25 MG TAB PO SCH ×2 (05:48→14:16)
[2019-06-18 06:55] LABS: Anisocytosis 1+; Basophils % (Manual) 0 % (0.0-1.8); Platelet Estimate Consistent w Auto; Total Cells Counted 100
[2019-06-18 08:10] VITALS: BP 126/55
[2019-06-18] MEDS: IPRATROPIUM/ALBUTEROL SULFATE 3 ML AMPUL.NEB IH SCH ×2 (08:50→15:40)
[2019-06-18] MEDS: ARFORMOTEROL 15 MCG/2 ML NEBU IH SCH (08:50)
[2019-06-18] MEDS: BUDESONIDE 0.5 MG/2 ML NEBU IH SCH (09:21)
[2019-06-18] MEDS: glipiZIDE 10 MG TAB PO SCH (09:59)
[2019-06-18] MEDS: LISINOPRIL 20 MG TAB PO SCH (09:59)
[2019-06-18] MEDS: INSULIN LISPRO 100 UNIT/ML SUB-Q SCH ×2 (09:59→12:22)
[2019-06-18] MEDS: PANTOPRAZOLE 40 MG TAB PO SCH (09:59)
[2019-06-18] MEDS: amLODIPine 10 MG TAB PO SCH (09:59)
[2019-06-18] MEDS ORDERED: ROSUVASTATIN CALCIUM 10 MG PO SCH (10:00)
[2019-06-18] MEDS: ENOXAPARIN 80 MG/0.8 ML INJ SUB-Q SCH (10:00)
[2019-06-18] MEDS: FAMOTIDINE 20 MG TAB PO SCH (10:00)
--- NOTE | 2019-06-18 13:36 | Discharge Summary ---
Providers - Providers Date of Admission: 06/15/19 14:14 Attending physician: TAMMI RAMAN MD 06/15/19 14:12 Consult to Dietitian/Nutrition [CONS] Routine Physician Instructions: Reason For Exam: Reason for Consult: Evaluate nutritional intake 06/15/19 19:23 Consult to Physician [CONS] Routine Comment: Consulting Provider: ZUHAIR PONCE Physician Instructions: Reason For Exam: NSTEMI 06/16/19 13:28 Consult to Physician [CONS] Routine Comment: Consulting Provider: KATHYA LU Physician Instructions: Reason For Exam: Hypoxemia, Asthma Exacerbation Primary care physician: [employer]GER Hospitalization Reason for admission: asthma Condition: Stable Hospital course: 53-year-old -[place] female with history of asthma, type 2 diabetes and hypertension intubated in the past once comes in for severe shortness of breath and wheezing since morning. Sudden onset. Patient was intubated in the past. No fever or chills. Patient uses nebulizer machine twice a day at home. No exacerbating or relieving factors. No recent travel. Patient was desaturating and was in low 80s because of which patient was intubated in the emergency room. Acute resp failure with hypoxia status post intubation -Now extubated and saturating well on nasal cannula -Continue oxygen supplementation as needed and neb tx -Echo reviewed - EF 50-55%, RVSP 25mmHg, no significant abnormalities. - will discharge on tapering dose of steroids and pulmonary follow up Status asthmaticus -Improved SIRS -Probably secondary to acute bronchitis versus early PNA Acute cystitis -Treated with IV antibiotics -Sputum and blood cultures pending DM2 with hyperglycemia -on SSI and Lantus Hypertensive urgency -Blood pressure uncontrolled -Antihypertensives adjusted, monitor BP Elevated troponin -Probably secondary to demand ischemia due to hypoxia -level trended down -echo pending -cardiology following Obesity with BMI of 36.3 -Lifestyle modification recommended DVT ppx: Lovenox GI ppx: Protonix Disp: anticipate in am Check home oxygen Disposition: - TO HOME OR SELFCARE Time spent for discharge: 35 mins Core Measure Documentation - Palliative Care Palliative Care/ Comfort Measures: Not Applicable - Core Measures Any of the following diagnoses?: none Exam - Constitutional Vitals: Temp Pulse Resp BP Pulse Ox 98.0 F 63 18 126/55 96 06/18/19 07:17 06/18/19 10:00 06/18/19 07:17 06/18/19 07:17 06/18/19 04:50 General appearance: Present: no acute distress, well-nourished - EENT Eyes: Present: PERRL ENT: hearing intact, clear oral mucosa - Neck Neck: Present: supple, normal ROM - Respiratory Respiratory effort: normal Respiratory: bilateral: CTA - Cardiovascular Rhythm: regular Heart Sounds: Present: S1 & S2. Absent: systolic murmur, diastolic murmur - Extremities Extremities: no ischemia, pulses intact, pulses symmetrical, No edema, normal temperature, normal color, Full ROM Peripheral Pulses: within normal limits - Abdominal General gastrointestinal: Present: soft, non-tender, non-distended, normal bowel sounds - Integumentary Integumentary: Present: clear, warm, dry - Musculoskeletal Musculoskeletal: strength equal bilaterally - Psychiatric Psychiatric: appropriate mood/affect, intact judgment & insight, cooperative - Neurologic Neurologic: CNII-XII intact, moves all extremities - Allied Health Allied health notes reviewed: nursing Plan Activity: advance as tolerated, fall precautions Diet: low salt Special Instructions: record daily BP diary Follow up with: PRIMARY CARE, [Primary Care Provider] - 3-5 Days KATHYA LU MD [Staff Physician] - 7 Days Forms: Discharge Signature Page Prescriptions: hydrALAZINE [Apresoline TAB] 50 mg PO Q8HR #90 tablet Amoxicillin/Potassium Clav [Augmentin 875-125 Tablet] 1 each PO BID #10 tablet Prednisone [predniSONE 10 mg (6-Day Pack, 21 Tabs)] 10 mg PO .TAPER #1 tab.ds.pk ALBUTEROL Inhaler (OR & NICU) [ProAir HFA Inhaler] 2 puff IH Q4H PRN #1 PRN Reason: Shortness Of Breath ALBUTEROL NEB's [Proventil 0.083% NEBS] 2.5 mg IH Q4H PRN #90 PRN Reason: Wheezing
--- NOTE | 2019-06-18 14:53 | Progress Note ---
Assessment and Plan Patient going home. Patient says he is breathing good. No complaing of chest pain, shortness of breath, or cough. O2 sat 96% on room air. Recommend to follow with Remy and stressed the importance of follow up. - Patient Problems (1) Acute respiratory failure Current Visit: Yes Status: Resolved Qualifiers: Respiratory failure complication: hypoxia Qualified Code(s): J96.01 - Acute respiratory failure with hypoxia Plan to address problem: Patient intubated and extubated. O2 saturation 96% on room air. Albuterol and Atrovent aerosol treatment Q6h Continue IV solumedrol Continue IV Rocephin and Zithromax Continue SC Lovenox. Continue Famotadine (2) Asthma exacerbation Current Visit: Yes Status: Acute Qualifiers: Asthma severity: severe Asthma persistence: persistent Qualified Code(s): J45.51 - Severe persistent asthma with (acute) exacerbation Plan to address problem: Patient intubated and extubated. O2 saturation 96%on room air. Albuterol and Atrovent aerosol treatment Q6h Continue IV solumedrol Continue IV Rocephin and Zithromax Continue SC Lovenox. Continue Famotadine PFTs as an outpatient Subjective Date of service: 06/18/19 Principal diagnosis: asthma exacerbation; acute repiratory failure Interval history: Patient going home. Patient says he is breathing good. No complaing of chest pain, shortness of breath, or cough. O2 sat 96% on room air. Recommend to follow with Remy and stressed the importance of follow up. Objective Vital Signs - 12hr 06/18/19 06/18/19 06/18/19 04:50 04:52 05:48 Temperature 98.2 F Pulse Rate 76 75 Respiratory 18 Rate Blood Pressure 137/69 137/69 O2 Sat by Pulse 96 Oximetry 06/18/19 06/18/19 07:17 10:00 Temperature 98.0 F Pulse Rate 63 Respiratory 18 Rate Blood Pressure 126/55 O2 Sat by Pulse Oximetry Constitutional: no acute distress, alert Eyes: non-icteric ENT: oropharynx moist Neck: supple, no JVD Ascultation: Bilateral: clear Cardiovascular: regular rate and rhythm Gastrointestinal: normoactive bowel sounds, soft, non-tender Integumentary: normal Extremities: no cyanosis, no edema Neurologic: normal mental status, non-focal exam, pupils equal and round, CN II- XII normal Psychiatric: mood appropriate CBC and BMP: 06/18/19 03:49 06/16/19 06:46 ABG, PT/INR, D-dimer: ABG POC ABG pH 7.387 (7.35-7.45) 06/16/19 10:50 POC ABG pCO2 39.5 (35-45) 06/16/19 10:50 POC ABG pO2 131 (80-105) H 06/16/19 10:50 POC ABG HCO3 23.8 (22-26 mml/L) 06/16/19 10:50 POC ABG Total CO2 25 (23-27mmol/L) 06/16/19 10:50 POC ABG O2 Sat 99 06/16/19 10:50 PT/INR, D-dimer PT 13.3 Sec. (12.2-14.9) 06/15/19 20:39 INR 1.02 (0.87-1.13) 06/15/19 20:39 D-Dimer 209.61 ng/mlDDU (0-234) 06/15/19 14:24 Abnormal lab findings: Abnormal Labs 06/15/19 06/15/19 06/15/19 14:03 14:24 14:24 WBC 25.0 H MCH 27 L Seg Neuts % (Manual) 73.0 H Lymphocytes % (Manual) Eosinophils % (Manual) 8.0 H Seg Neutrophils # Man 18.3 H Lymphocytes # (Manual) Eosinophils # (Manual) 2.0 H Basophils # (Manual) 0.3 H Heparin Anti-Xa Level POC ABG pH POC ABG pCO2 POC ABG pO2 BUN 19 H Glucose 195 H POC Glucose 261 H Total Creatine Kinase CK-MB (CK-2) Troponin T HDL Cholesterol Urine WBC (Auto) 06/15/19 06/15/19 06/15/19 16:01 16:34 20:39 WBC MCH Seg Neuts % (Manual) Lymphocytes % (Manual) Eosinophils % (Manual) Seg Neutrophils # Man Lymphocytes # (Manual) Eosinophils # (Manual) Basophils # (Manual) Heparin Anti-Xa Level POC ABG pH 7.326 L POC ABG pCO2 48.5 H POC ABG pO2 153 H BUN Glucose POC Glucose Total Creatine Kinase CK-MB (CK-2) Troponin T 0.033 H D 0.059 H D HDL Cholesterol 71 H Urine WBC (Auto) 06/15/19 06/15/19 06/16/19 20:39 20:42 00:33 WBC MCH Seg Neuts % (Manual) Lymphocytes % (Manual) Eosinophils % (Manual) Seg Neutrophils # Man Lymphocytes # (Manual) Eosinophils # (Manual) Basophils # (Manual) Heparin Anti-Xa Level POC ABG pH POC ABG pCO2 POC ABG pO2 BUN Glucose POC Glucose 195 H 214 H Total Creatine Kinase 832 H CK-MB (CK-2) 11.8 H Troponin T HDL Cholesterol Urine WBC (Auto) 06/16/19 06/16/19 06/16/19 01:53 05:22 05:22 WBC MCH Seg Neuts % (Manual) Lymphocytes % (Manual) Eosinophils % (Manual) Seg Neutrophils # Man Lymphocytes # (Manual) Eosinophils # (Manual) Basophils # (Manual) Heparin Anti-Xa Level 0.17 L POC ABG pH POC ABG pCO2 POC ABG pO2 BUN Glucose POC Glucose Total Creatine Kinase 887 H CK-MB (CK-2) 12.0 H Troponin T 0.034 H D HDL Cholesterol Urine WBC (Auto) 06/16/19 06/16/19 06/16/19 06:07 06:46 10:50 WBC MCH Seg Neuts % (Manual) Lymphocytes % (Manual) Eosinophils % (Manual) Seg Neutrophils # Man Lymphocytes # (Manual) Eosinophils # (Manual) Basophils # (Manual) Heparin Anti-Xa Level POC ABG pH POC ABG pCO2 POC ABG pO2 131 H BUN Glucose POC Glucose 186 H Total Creatine Kinase 870 H CK-MB (CK-2) 11.5 H Troponin T HDL Cholesterol Urine WBC (Auto) 06/16/19 06/16/19 06/17/19 12:01 19:16 00:25 WBC MCH Seg Neuts % (Manual) Lymphocytes % (Manual) Eosinophils % (Manual) Seg Neutrophils # Man Lymphocytes # (Manual) Eosinophils # (Manual) Basophils # (Manual) Heparin Anti-Xa Level POC ABG pH POC ABG pCO2 POC ABG pO2 BUN Glucose POC Glucose 205 H 292 H 382 H Total Creatine Kinase CK-MB (CK-2) Troponin T HDL Cholesterol Urine WBC (Auto) 06/17/19 06/17/19 06/17/19 05:41 06:19 10:20 WBC 12.8 H MCH 26 L Seg Neuts % (Manual) 97.0 H Lymphocytes % (Manual) 2.0 L Eosinophils % (Manual) Seg Neutrophils # Man 12.4 H Lymphocytes # (Manual) 0.3 L Eosinophils # (Manual) Basophils # (Manual) Heparin Anti-Xa Level POC ABG pH POC ABG pCO2 POC ABG pO2 BUN Glucose POC Glucose 159 H Total Creatine Kinase CK-MB (CK-2) Troponin T HDL Cholesterol Urine WBC (Auto) 13.0 H 06/17/19 06/17/19 06/17/19 12:00 16:10 21:54 WBC MCH Seg Neuts % (Manual) Lymphocytes % (Manual) Eosinophils % (Manual) Seg Neutrophils # Man Lymphocytes # (Manual) Eosinophils # (Manual) Basophils # (Manual) Heparin Anti-Xa Level POC ABG pH POC ABG pCO2 POC ABG pO2 BUN Glucose POC Glucose 323 H 236 H 212 H Total Creatine Kinase CK-MB (CK-2) Troponin T HDL Cholesterol Urine WBC (Auto) 06/18/19 06/18/19 06/18/19 03:49 07:25 12:16 WBC MCH 27 L Seg Neuts % (Manual) 95.0 H Lymphocytes % (Manual) 3.0 L Eosinophils % (Manual) Seg Neutrophils # Man 10.2 H Lymphocytes # (Manual) 0.3 L Eosinophils # (Manual) Basophils # (Manual) Heparin Anti-Xa Level POC ABG pH POC ABG pCO2 POC ABG pO2 BUN Glucose POC Glucose 228 H 286 H Total Creatine Kinase CK-MB (CK-2) Troponin T HDL Cholesterol Urine WBC (Auto)
== END 2019-06-18 16:43 | disposition home or self-care (01) | DRG 208 ==
LOC: ED 13:27 → CC1 14:14 → 4A 06-16 15:39
PROVIDERS: ADMIT Internal Medicine; ATTEND Internal Medicine
PROC: 5A1935Z Respiratory Ventilation, Less than 24 Consecutive Hours (ICD-10-PCS; principal; 2019-06-15)
PROC: 0BH17EZ Insertion of Endotracheal Airway into Trachea, Via Natural or Artificial Opening (ICD-10-PCS; 2019-06-15)
PROC: 4A033R1 Measurement of Arterial Saturation, Peripheral, Percutaneous Approach (ICD-10-PCS; 2019-06-15)
PROC: 3E0234Z Introduction of Serum, Toxoid and Vaccine into Muscle, Percutaneous Approach (ICD-10-PCS; 2019-06-17)
DX: J96.01 Acute respiratory failure with hypoxia (principal); J18.9 Pneumonia, unspecified organism; J45.51 Severe persistent asthma with (acute) exacerbation; J45.902 Unspecified asthma with status asthmaticus; N30.00 Acute cystitis without hematuria; J20.9 Acute bronchitis, unspecified; I10 Essential (primary) hypertension; E11.65 Type 2 diabetes mellitus with hyperglycemia; I16.0 Hypertensive urgency; E66.9 Obesity, unspecified; D72.829 Elevated white blood cell count, unspecified; Z23 Encounter for immunization; Z91.013 Allergy to seafood; Z68.37 Body mass index [BMI] 37.0-37.9, adult; Z79.899 Other long term (current) drug therapy; Z82.49 Family history of ischemic heart disease and other diseases of the circulatory system
CPT/HCPCS: 36415; 36600; 71045; 80048; 80061; 81001; 82550; 82553; 82803; 82962; 83690; 83880; 84132; 84484; 85007; 85014; 85018; 85025; 85049; 85379; 85520; 85610; 85730; 87040; 87070; 87086; 87205; 90686; 90732; 93005; 93010; 93306; 94002; 94003; 94640; 94644; 94760; 96361; 96374; 96375; G0378; A9270-GY; J0330; J0360; J0456; J0696; J1644; J1650; J1815; J1940; J2060; J2250; J2704; J2920; J2930; J7030; J7050

== ENCOUNTER 2020-12-31 11:35 | Emergency (ER) | payer OTHER ==
[2020-12-31] MEDS ORDERED: ALBUTEROL 2.5 MG/3 ML NEBU IH ONE (11:43)
[2020-12-31] MEDS ORDERED: IPRATROPIUM 0.02% NEBU 2.5 ML IH ONE (11:44)
[2020-12-31 12:00] LABS: ABG Base Excess -2.3 mmol/L (-2.0-3.0); ABG HCO3 26.1 mmol/L (20.0-26.0); ABG Methemoglobin 0.5 % (0.0-1.5); ABG Oxygen Saturation 97.4 % (95.0-99.0); ABG PCO2 61.3 mm Hg; ABG PH 7.247 pH Units (7.350-7.450); ABG PO2 111.3 mm Hg (80.0-90.0)
--- NOTE | 2020-12-31 12:05 | Emergency Department Report ---
ED Shortness of Breath HPI - General Stated Complaint: ASTHMA Time Seen by Provider: 12/31/20 11:46 Source: patient, EMS - History of Present Illness Initial Comments: 55-year-old female, history of asthma, hypertension, diabetes, presents to ED with wheezing and shortness of breath. Patient states symptoms began this morning while at work. Patient works as a teacher. EMS was called. They report patient had administered 3 breathing treatments prior to their arrival. EMS reports O2 sats were in the 70s when they arrived and patient was in tripod position. She was given Solu-Medrol 125 mg, mag sulfate 2 g, albuterol 2.5 mg by EMS. Patient denies any chest pain or fever. She denies receiving a Covid vaccine yet. She denies any known contact with anyone who has tested positive for COVID-19. MD Complaint: "asthma attack" -: This morning Severity: severe Consistency: constant Improves With: nothing Worsens With: nothing Known History Of: asthma Treatments Prior to Arrival: oxygen, bronchodilator, other (Solu-Medrol, magnesium sulfate) - Related Data Home Oxygen Therapy: No Home Medications Medication Instructions Recorded Confirmed Last Taken Amlodipine Besylate [Norvasc] 5 mg PO QDAY 06/16/19 06/16/19 06/15/19 Rosuvastatin Calcium [Crestor] 10 mg PO DAILY 06/16/19 06/16/19 06/15/19 glipiZIDE [Glucotrol] 10 mg PO BID 06/16/19 06/16/19 06/15/19 lisinopriL [Zestril TAB] 10 mg PO QDAY 06/16/19 06/16/19 06/15/19 Previous Rx's Medication Instructions Recorded Last Taken Type ALBUTEROL NEB's [Proventil 0.083% 2.5 mg IH Q4H PRN #90 06/18/19 Unknown Rx NEBS] Albuterol Mdi (or & Nicu Only) 2 puff IH Q4H PRN #1 06/18/19 Unknown Rx [ProAir HFA Inhaler] Amoxicillin/Potassium Clav 1 each PO BID #10 tablet 06/18/19 Unknown Rx [Augmentin 875-125 Tablet] Prednisone [predniSONE 10 mg 10 mg PO .TAPER #1 tab.ds.pk 06/18/19 Unknown Rx (6-Day Pack, 21 Tabs)] hydrALAZINE [Apresoline TAB] 50 mg PO Q8HR #90 tablet 06/18/19 Unknown Rx Albuterol Sulfate [Proventil Hfa] 2 puff IH Q4HR PRN #1 hfa.aer.ad 12/31/20 Unknown Rx predniSONE [Deltasone] 50 mg PO QDAY #5 tab 12/31/20 Unknown Rx Allergies Allergy/AdvReac Type Severity Reaction Status Date / Time seafood, shellfish Allergy Rash Uncoded 04/12/16 21:12 ED Review of Systems ROS: Stated complaint: ASTHMA Other details as noted in HPI Comment: All other systems reviewed and negative Constitutional: denies: chills, fever Respiratory: shortness of breath, wheezing Cardiovascular: denies: chest pain ED Past Medical Hx - Past Medical History Hx Hypertension: Yes Hx Diabetes: Yes Hx Asthma: Yes - Surgical History Additional Surgical History: right kidney removed as child - Social History Smoking Status: Unknown if ever smoked - Medications Home Medications: Home Medications Medication Instructions Recorded Confirmed Last Taken Type Amlodipine Besylate [Norvasc] 5 mg PO QDAY 06/16/19 06/16/19 06/15/19 History Rosuvastatin Calcium [Crestor] 10 mg PO DAILY 06/16/19 06/16/19 06/15/19 History glipiZIDE [Glucotrol] 10 mg PO BID 06/16/19 06/16/19 06/15/19 History lisinopriL [Zestril TAB] 10 mg PO QDAY 06/16/19 06/16/19 06/15/19 History ALBUTEROL NEB's [Proventil 0.083% 2.5 mg IH Q4H PRN #90 06/18/19 Unknown Rx NEBS] Albuterol Mdi (or & Nicu Only) 2 puff IH Q4H PRN #1 06/18/19 Unknown Rx [ProAir HFA Inhaler] Amoxicillin/Potassium Clav 1 each PO BID #10 tablet 06/18/19 Unknown Rx [Augmentin 875-125 Tablet] Prednisone [predniSONE 10 mg 10 mg PO .TAPER #1 tab.ds.pk 06/18/19 Unknown Rx (6-Day Pack, 21 Tabs)] hydrALAZINE [Apresoline TAB] 50 mg PO Q8HR #90 tablet 06/18/19 Unknown Rx Albuterol Sulfate [Proventil Hfa] 2 puff IH Q4HR PRN #1 hfa.aer.ad 12/31/20 Unknown Rx predniSONE [Deltasone] 50 mg PO QDAY #5 tab 12/31/20 Unknown Rx ED Physical Exam - General General appearance: alert - Head Head exam: Present: atraumatic, normocephalic - Eye Eye exam: Present: normal appearance - ENT ENT exam: Present: mucous membranes moist - Neck Neck exam: Present: normal inspection - Respiratory Respiratory exam: Present: respiratory distress, wheezes - Cardiovascular Cardiovascular Exam: Present: normal rhythm, tachycardia - GI/Abdominal GI/Abdominal exam: Present: soft. Absent: distended, tenderness - Extremities Exam Extremities exam: Present: normal inspection - Neurological Exam Neurological exam: Present: alert, oriented X3 - Psychiatric Psychiatric exam: Present: normal affect, normal mood - Skin Skin exam: Present: warm, dry, intact, normal color ED Course Vital Signs 12/31/20 12/31/20 12/31/20 11:36 11:38 12:00 Temperature 98.0 F Pulse Rate 141 H 126 H 122 H Pulse Rate [ Anterior Bilateral Throughout] Respiratory 23 22 21 Rate Respiratory Rate [Anterior Bilateral Throughout] Blood Pressure 232/130 Blood Pressure 232/100 [Left] O2 Sat by Pulse 99 99 100 Oximetry 12/31/20 12/31/20 12/31/20 12:30 12:45 12:46 Temperature Pulse Rate 108 H 101 H 100 H Pulse Rate [ 122 H Anterior Bilateral Throughout] Respiratory 19 17 Rate Respiratory 26 H Rate [Anterior Bilateral Throughout] Blood Pressure 173/112 164/95 Blood Pressure 152/82 [Left] O2 Sat by Pulse 100 100 Oximetry 12/31/20 12/31/20 12/31/20 13:00 13:20 13:31 Temperature Pulse Rate 125 H 103 H 101 H Pulse Rate [ Anterior Bilateral Throughout] Respiratory 14 15 15 Rate Respiratory Rate [Anterior Bilateral Throughout] Blood Pressure 152/82 173/112 150/90 Blood Pressure 142/98 [Left] O2 Sat by Pulse 100 100 100 Oximetry 12/31/20 12/31/20 12/31/20 13:45 14:01 14:16 Temperature Pulse Rate 105 H 99 H Pulse Rate [ Anterior Bilateral Throughout] Respiratory 17 20 97 H Rate Respiratory Rate [Anterior Bilateral Throughout] Blood Pressure 150/91 164/101 Blood Pressure [Left] O2 Sat by Pulse 99 99 Oximetry - Reevaluation(s) Reevaluation #1: 12/31/20 13:01 Patient has been reevaluated multiple times. She is currently feeling much better. Wheezing is much improved. Blood pressure is now 142/98 without int ervention. ED Medical Decision Making - Lab Data Result diagrams: 12/31/20 11:57 12/31/20 11:57 - EKG Data -: EKG Interpreted by Me EKG shows normal: sinus rhythm, axis, intervals, QRS complexes, ST-T waves Rate: normal - EKG Data Interpretation: LV[facility] - Radiology Data Radiology results: report reviewed, image reviewed - Medical Decision Making 55-year-old female presents to ED with acute asthma exacerbation. Patient given Solu-Medrol and mag sulfate by EMS. Patient given 1 hour neb treatment here in the ED. Chest x-ray unremarkable. Labs normal except for hypokalemia and hyperglycemia. No evidence of DKA present. Blood pressure was initially quite elevated, however BP greatly improved without intervention. Following nebulizer treatment, patient feeling much better, wheezing resolved. Patient able to ambulate around the ED without difficulty. Patient feels comfortable with discharge home at this time. Prescriptions will be given. Outpatient follow-up advised, return precautions given. - Differential Diagnosis Asthma, pneumonia, pulmonary edema Critical care attestation.: If time is entered above; I have spent that time in minutes in the direct care of this critically ill patient, excluding procedure time. ED Disposition Clinical Impression: Acute asthma exacerbation, Hypokalemia, Hyperglycemia Disposition: TO HOME OR SELFCARE Is pt being admited?: No Condition: Stable Prescriptions: predniSONE [Deltasone] 50 mg PO QDAY #5 tab Albuterol Sulfate [Proventil Hfa] 2 puff IH Q4HR PRN #1 hfa.aer.ad PRN Reason: Wheezing Referrals: PRIMARY CARE, [Primary Care Provider] - 3-5 Days Time of Disposition: 14:19
--- NOTE | 2020-12-31 12:14 | XRay Report ---
CHEST 1 VIEW 12/31/2020 11:48 AM INDICATION / CLINICAL INFORMATION: sob. COMPARISON: One view of the chest from 06/16/2019. FINDINGS: SUPPORT DEVICES: None. HEART / MEDIASTINUM: No significant abnormality. LUNGS / PLEURA: Clear lungs. No significant pleural effusion. No pneumothorax. ADDITIONAL FINDINGS: The bones are unchanged. IMPRESSION: 1. No acute abnormality of the chest. Signer Name: Liban Thyaer MD Signed: 12/31/2020 12:10 PM Workstation Name: [id number]
[2020-12-31 12:19] LABS: Basophils # (Auto) 0.1 K/mm3 (0.0-0.1); Basophils % (Auto) 0.4 % (0.0-1.8); Eosinophils # (Auto) 0.2 K/mm3 (0.0-0.4); Eosinophils % (Auto) 1.5 % (0.0-4.3); Hematocrit 40.7 % (30.3-42.9); Hemoglobin 13.5 gm/dl (10.1-14.3); Lymphocytes # (Auto) 2.5 K/mm3 (1.2-5.4); Lymphocytes % (Auto) 18.3 % (13.4-35.0); Mean Corpuscular HGB Conc 33 % (30-34); Mean Corpuscular Volume 81 fl (79-97); Monocytes # (Auto) 0.5 K/mm3 (0.0-0.8); Monocytes % (Auto) 3.3 % (0.0-7.3); Platelet Count 204 K/mm3 (140-440); Red Cell Distribution Width 14.4 % (13.2-15.2)
[2020-12-31 12:28] LABS: INR 0.99 (0.87-1.13)
[2020-12-31 12:29] LABS: Partial Thromboplastin Time 25.7 Sec. (24.2-36.6)
[2020-12-31 13:48] LABS: BUN/Creatinine Ratio 15; Blood Urea Nitrogen 12 mg/dL (7-17); Calcium 9.1 mg/dL (8.4-10.2); Hemolysis Index 9
[2020-12-31] MEDS ORDERED: POTASSIUM CHLORIDE ER 20 MEQ TAB PO ONE (13:50)
[2020-12-31 14:19] VITALS: BP 142/98
--- NOTE | 2021-01-04 17:32 | Electrocardiograph Report ---
[facility] Test Date: 2020-12-31 Test Time: 14:02:17 Pat Name: LOR WEBSTER Department: Room: Gender: F Account Development Executive: OZIEL : 1965 Requested By: FLAKITA CHAMBERS Order Number: [id number] Reading MD: Karina Payton Measurements Intervals [place] Rate: 99 P: 51 [place]: 178 QRS: 28 QRSD: 93 T: 22 QT: 386 QTc: 495 Interpretive Statements Sinus rhythm Consider left ventricular hypertrophy No previous ECG available for comparison Electronically Signed On 01-04-2021 17:32:32 EDT by Karina Payton
== END 2020-12-31 14:47 | disposition home or self-care (01) ==
LOC: ED 11:35
DX: J45.901 Unspecified asthma with (acute) exacerbation (principal); E11.65 Type 2 diabetes mellitus with hyperglycemia; E87.6 Hypokalemia; I10 Essential (primary) hypertension; Z98.890 Other specified postprocedural states; Z79.899 Other long term (current) drug therapy; Z79.2 Long term (current) use of antibiotics; Z91.013 Allergy to seafood
CPT/HCPCS: 36415; 71045; 80048; 82803; 83880; 84484; 85025; 85610; 85730; 93005; 94644